=== PATIENT | female | born 1950 | race Caucasian/White ===

== ENCOUNTER → 2023-02-01 09:06 | Outpatient (BNVA) | payer MEDICARE, OTHER, SELFPAY | PROVIDERS: Visit Provider Internal Medicine Rheumatology | DX: M06.9 Rheumatoid arthritis, unspecified (principal); M81.0 Age-related osteoporosis without current pathological fracture; M75.01 Adhesive capsulitis of right shoulder; Z79.631 Long term (current) use of antimetabolite agent | CPT/HCPCS: 36415; 82306; 82310; 82565; 84100; 84450; 84460; 85025; 85652; 86140; 99212 ==

== ENCOUNTER 2023-02-01 10:46 | Outpatient (REF) | payer MEDICARE, OTHER, SELFPAY ==
[2023-02-01 13:16] LABS: MANUAL DIFF FLAG NO
[2023-02-01 13:28] LABS: Basophils Absolute Auto 0.1 X10*3/uL (0.0-0.2); Basophils Percent Auto 0.9 % (0-2); Eosinophils Absolute Auto 0.2 X10*3/uL (0.0-0.4); Eosinophils Percent Auto 2.1 % (0-4); Hematocrit 42.7 % (37.0-47.0); Hemoglobin 13.5 g/dl (12.0-16.0); Imm Gran Abs Auto 0.02 X10*3/uL (0.00-0.03); Imm Gran Pct Auto 0.2 % (0.0-0.4); Lymphocytes Absolute Auto 1.7 X10*3/uL (1.2-4.9); Lymphocytes Percent Auto 20.4 % (20-40); Mean Corpuscular HGB Conc 31.6 g/dl (31.0-35.0); Mean Corpuscular Hemoglobin 29.5 pg (27.0-33.0); Mean Corpuscular Volume 93.4 fL (80.0-98.0); Mean Platelet Volume 10.1 fL (9.4-12.3); Monocytes Absolute Auto 0.7 X10*3/uL (0.1-1.2); Monocytes Percent Auto 8.3 % (2-11); Neutrophils Absolute Auto 5.8 x10*3/uL (2.0-8.3); Neutrophils Percent Auto 68.1 % (45-73); Platelet Count 313 X10*3/uL (160-400); Red Blood Count 4.57 X10*6/uL (4.20-5.50); Red Cell Distribution Width 13.4 % (11.0-16.0); White Blood Count 8.5 X10*3/uL (4.8-10.8)
[2023-02-01 13:40] LABS: Alanine Aminotransferase 31 U/L (0-31); Aspartate Amino Transferase 24 U/L (5-31); Estimated Glomerular Filt Rate > 60; Phosphorus 4.1 mg/dL (2.7-4.5)
[2023-02-01 14:15] LABS: Erythrocyte Sedimentation Rate 12 MM/HR (0-20)
[2023-02-09 12:29] LABS: Vitamin D 25-OH, D2 <4 ng/mL; Vitamin D 25-OH, D3 28 ng/mL; Vitamin D 25-OH, Total 28 ng/mL (30-100)
== END 2023-02-01 10:47 | disposition home or self-care (01) ==
LOC: HO.10HDL 10:46
PROVIDERS: Visit Provider Internal Medicine Rheumatology
DX: Z13.89 Encounter for screening for other disorder (principal)
CPT/HCPCS: 36415; 82306; 82310; 82565; 84100; 84450; 84460; 85025; 85652; 86140

== ENCOUNTER 2023-05-04 09:21 | Outpatient (AMB) | payer MEDICARE, OTHER, SELFPAY ==
--- NOTE | 2023-05-04 09:30 | MHC.OFFVIS ---
Intake Vital Signs 05/04/23 09:37 Height 5 ft 3 in Weight 80 lb 7.5 oz BMI 14.3 BP 180/90 H Blood Pressure Location Lt brachial Position Sitting Pulse 107 H Pulse Source Pulse Oximeter Temp 97.7 F Temp Source Skin Pulse Oximetry (%) 96 Oxygen Delivery Method Room Air Intake Visit Reasons: ra Intake Note: Patient here for RA follow up. Insight Leader Required: No Accompanied by: Self / Same As Patient Allergies No Known Allergies Allergy (Verified 05/04/23 09:36) HPI HPI Comments History of Present Illness Details The patient returns for evaluation of her rheumatoid arthritis. She is back on the methotrexate now at 15 mg weekly with folic acid 1 mg daily. She really does not have any significant joint pain at present. She seems to be tolerating methotrexate as had been the case for a number of years now. This COPD has been stable with current inhalers. She unfortunately is still smoking 1/2 pack per day. There have been no further cardiac symptoms. We did locate her bone densitometry from the [facility]. It did show osteoporosis. She had been offered an injectable but she would going to have to pay 800 dollars a week for it so she decided to not take it. 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 Card Details: Negative chest pain, edema and syncope Resp Details: Negative for SOB, cough and wheezing GI Details: Negative indigestion/heartburn, nausea, abdominal pain, bowel changes, diarrhea, constipation and bloody stool. Davin/Lymph Details: Negative for excessive bruising or bleeding. Physical Exam Vital Signs: Last Vital Signs Temp 97.7 F 05/04/23 09:37 Pulse 107 H 05/04/23 09:37 BP 180/90 H 05/04/23 09:37 Pulse Ox 96 05/04/23 09:37 Oxygen Delivery Method Room Air 05/04/23 09:37 BMI result Body Mass Index 14.3 APPEARANCE: Patient in no acute distress EYES no redness, pupils equal and reactive to light, eyelids normal. No temporal artery tenderness, redness or swelling. Cervical Spine: Some decrease in lateral flexion to 10 degrees and rotation at 40 degrees but without pain. No tenderness. Thoracic Spine:.? No scoliosis.? No tenderness on palpation. Lumbar Spine:.? Alignment normal.? Full range of motion without pain, no tenderness. Chest Wall:.? No tenderness, swelling, increased warmth or erythema. Hands: Right: No tenderness or swelling in the MCP joints. There is some thickening at the thumb IP and 2nd PIP joint with no tenderness. There is no thenar atrophy or sensory loss. Left: Mild swelling without tenderness at the 1st MCP joint.There is some thickening in the 2nd 3rd PIP without tenderness. No thenar atrophy or sensory loss. Wrists:.? Normal pain-free range of motion without tenderness, swelling, increased warmth or erythema. Elbows:. Normal pain-free range of motion without tenderness, swelling, increased warmth or erythema. Shoulders: Right: She has pain with abduction to 75 degrees and limitation of active motion at 90 degrees of abduction. Similarly there is pain with any attempted internal rotation and external rotation is intact only to about 20 degrees. There is mild anterior, subacromial and posterior tenderness with some abductor weakness without swelling or adenopathy. Left:?? Full range of motion without pain. No tenderness, weakness, swelling, increased warmth or erythema. Hips:.? Full range of motion without pain. Hip bursa:.? No tenderness. Knees:.?? Normal pain-free range of motion with slight patellofemoral crepitus but no effusion, tenderness, swelling, increased warmth or erythema.? Ankles:.? Normal pain-free range of motion without tenderness, swelling, increased warmth or erythema. Feet:.? Normal pain-free range of motion without tenderness, swelling, increased warmth or erythema. Tender points:.? No tenderness to digital palpation at the occiput, trapezius, second rib, lateral epicondyle, knees, greater trochanter and gluteal area bilaterally. Results Reviewed Results Reviewed: February 01 labs: White count 8.5, ESR 12, hemoglobin 13.5. AST 24, ALT 31, CRP 0.4, creatinine 0.72 Assessment & Plan Assessment & Plan (1) detention methotrexate user: Code(s): Z79.631 - detention (current) use of antimetabolite agent (2) Osteoporosis: Comment: Right humeral fracture, 06/2021. November 09 T-scores at [facility]: LS spine-3.4, femoral neck,-2.2, total femur -2.0 Apparently declined treatment for osteoporosis at the [facility]. Code(s): M81.0 - Age-related osteoporosis without current pathological fracture (3) Rheumatoid arthritis: Comment: Onset ~ 2009, mostly hands. RF, CCP Ab, CACHORRO all positive. Negative anti DNA, anti Sm Ab. methotrexate started Aug 2012 - stopped 08/04 when she developed seizure, blood in CSF, leptomeningeal inflammation on MRI scan Hydroxychloroquine started 2016 - changed to methotrexate (restarted) 06/06 Code(s): M06.9 - Rheumatoid arthritis, unspecified Plan Now that she is back on the methotrexate there is good control of her synovitis from the RA with that treatment. She is functioning a bit better as well. She remains with limited motion and pain in the right shoulder where she had the fracture. I suspect she has rotator cuff damage there as well as osteoarthritis. I encouraged her to continue with [id number] exercises that she had been taught in physical therapy. We reviewed the bone density test from the [facility]. I also have recommended treatment for osteoporosis since given her previous fracture, history of RA, and smoking she is at a greater risk of fracture. I think we could start with alendronate 70 mg once a week. I gave her some written information on osteoporosis as well as on alendronate to review. She seems to agree to try that medication. We discussed the potential atypical fractures, heartburn, and osteonecrosis of the jaw that can occur with bisphosphonate treatments. Most of these occur after many years. I explained that the treatment would aim to avoid future fractures but would not improve any of her symptoms currently. We will have her come back in 3 months with lab work for monitoring the methotrexate and vitamin D level to be done before that visit. 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
[2023-05-04 09:37] VITALS: BP 180/90; PULSE 107; TEMP 36.5; O2SAT 96; BMI 14.3
== END 2023-05-04 10:14 | disposition home or self-care (01) ==
PROVIDERS: Visit Provider Internal Medicine Rheumatology
DX: Z79.631 Long term (current) use of antimetabolite agent (principal); M81.0 Age-related osteoporosis without current pathological fracture; M06.9 Rheumatoid arthritis, unspecified
CPT/HCPCS: 99214

== ENCOUNTER → 2023-05-04 09:21 | Outpatient (BNVA) | payer MEDICARE, OTHER, SELFPAY | PROVIDERS: Visit Provider Internal Medicine Rheumatology | DX: M06.9 Rheumatoid arthritis, unspecified (principal); M81.0 Age-related osteoporosis without current pathological fracture; Z79.631 Long term (current) use of antimetabolite agent | CPT/HCPCS: 99212 ==

== ENCOUNTER 2023-05-12 08:51 | Outpatient (REF) | payer MEDICARE, OTHER, SELFPAY ==
[2023-05-12 11:32] LABS: Basophils Absolute Auto 0.1 X10*3/uL (0.0-0.2); Basophils Percent Auto 1.1 % (0-2); Eosinophils Absolute Auto 0.2 X10*3/uL (0.0-0.4); Hematocrit 43.9 % (37.0-47.0); Hemoglobin 14.2 g/dl (12.0-16.0); Imm Gran Abs Auto 0.02 X10*3/uL (0.00-0.03); Imm Gran Pct Auto 0.3 % (0.0-0.4); Lymphocytes Absolute Auto 2.4 X10*3/uL (1.2-4.9); Lymphocytes Percent Auto 29.4 % (20-40); MANUAL DIFF FLAG SCAN; Mean Corpuscular HGB Conc 32.3 g/dl (31.0-35.0); Mean Corpuscular Hemoglobin 31.5 pg (27.0-33.0); Mean Corpuscular Volume 97.3 fL (80.0-98.0); Mean Platelet Volume 10.3 fL (9.4-12.3); Monocytes Absolute Auto 0.6 X10*3/uL (0.1-1.2); Monocytes Percent Auto 7.9 % (2-11); Neutrophils Absolute Auto 4.7 x10*3/uL (2.0-8.3); Neutrophils Percent Auto 59.3 % (45-73); Platelet Count 311 X10*3/uL (160-400); Red Blood Count 4.51 X10*6/uL (4.20-5.50); Red Cell Distribution Width 14.8 % (11.0-16.0); SCAN SMEAR FLAG 1
[2023-05-12 11:36] LABS: Alanine Aminotransferase 25 U/L (0-31); C Reactive Protein 0.42 mg/dL (< or = 0.50); Estimated Glomerular Filt Rate > 60
[2023-05-12 12:07] LABS: SLIDE REVIEW VERIFIED
[2023-05-12 12:20] LABS: Erythrocyte Sedimentation Rate 13 MM/HR (0-20)
[2023-05-17 13:54] LABS: Vitamin D 25-OH, D2 <4 ng/mL; Vitamin D 25-OH, D3 46 ng/mL; Vitamin D 25-OH, Total 46 ng/mL (30-100)
== END 2023-05-12 08:52 | disposition home or self-care (01) ==
LOC: HO.10HDL 08:51
PROVIDERS: Visit Provider Internal Medicine Rheumatology
DX: M06.9 Rheumatoid arthritis, unspecified (principal); E55.9 Vitamin D deficiency, unspecified; Z79.899 Other long term (current) drug therapy
CPT/HCPCS: 36415; 82306; 82565; 84460; 85025; 85652; 86140

== ENCOUNTER 2023-09-12 10:33 | Outpatient (REF) | payer MEDICARE, OTHER, SELFPAY ==
[2023-09-12 11:40] LABS: MANUAL DIFF FLAG NO
[2023-09-12 11:54] LABS: Basophils Absolute Auto 0.1 X10*3/uL (0.0-0.2); Basophils Percent Auto 0.8 % (0-2); Eosinophils Absolute Auto 0.2 X10*3/uL (0.0-0.4); Eosinophils Percent Auto 1.7 % (0-4); Hematocrit 43.3 % (37.0-47.0); Imm Gran Abs Auto 0.03 X10*3/uL (0.00-0.03); Imm Gran Pct Auto 0.3 % (0.0-0.4); Lymphocytes Absolute Auto 2.1 X10*3/uL (1.2-4.9); Lymphocytes Percent Auto 22.4 % (20-40); Mean Corpuscular HGB Conc 32.3 g/dl (31.0-35.0); Mean Corpuscular Hemoglobin 31.6 pg (27.0-33.0); Mean Corpuscular Volume 97.7 fL (80.0-98.0); Mean Platelet Volume 10.1 fL (9.4-12.3); Monocytes Absolute Auto 0.7 X10*3/uL (0.1-1.2); Monocytes Percent Auto 7.3 % (2-11); Neutrophils Absolute Auto 6.4 x10*3/uL (2.0-8.3); Neutrophils Percent Auto 67.5 % (45-73); Platelet Count 323 X10*3/uL (160-400); Red Blood Count 4.43 X10*6/uL (4.20-5.50); Red Cell Distribution Width 13.8 % (11.0-16.0); White Blood Count 9.5 X10*3/uL (4.8-10.8)
[2023-09-12 12:36] LABS: Erythrocyte Sedimentation Rate 10 MM/HR (0-20)
[2023-09-12 13:01] LABS: Alanine Aminotransferase 22 U/L (0-31); Aspartate Amino Transferase 20 U/L (5-31); C Reactive Protein 0.34 mg/dL (< or = 0.50); Estimated Glomerular Filt Rate > 60
== END 2023-09-12 10:34 | disposition home or self-care (01) ==
LOC: HO.10HDL 10:33
PROVIDERS: Visit Provider Internal Medicine Rheumatology
DX: M06.9 Rheumatoid arthritis, unspecified (principal); Z79.899 Other long term (current) drug therapy
CPT/HCPCS: 36415; 82565; 84450; 84460; 85025; 85652; 86140

== ENCOUNTER 2023-09-15 13:05 | Outpatient (AMB) | payer MEDICARE, OTHER, SELFPAY ==
--- NOTE | 2023-09-15 13:12 | A.OFFVIS_ITS ---
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 García, presents today for follow up and test results. Crepe Machine Operator Required: No Accompanied by: Self / Same As Patient Allergies No Known Allergies Allergy (Verified 09/15/23 13:18) HPI HPI Comments History of Present Illness Details Ms. Verna Hess yoF returns for follow-up of her rheumatoid arthritis. Marybel waldron is back on the methotrexate now at 15 mg weekly with folic acid 1 mg daily since last visit 04/2023. She really does not have any significant joint pain at present. She is tolerating methotrexate as had been the case for a number of years now. This COPD has been stable with current inhalers. She unfortunately is still smoking 1/2 pack per day. There have been no further cardiac symptoms. Bone densitometry from the [facility] shows lowes T-Socre -3.8, osteoporosis. She had been offered an injectable but she would going to have to pay 800 dollars a week for it so she decided to not take it. She takes a multivitamin daily. 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 NECK:? No thyromegaly or masses, no adenopathy, trachea midline. HEART:? Regular rhythm, S1-S2 heard, no murmurs, rubs or gallops. LUNG:? Clear to percussion and auscultation Cervical Spine: Some decrease in lateral flexion to 10 degrees and rotation at 40 degrees but without pain. No tenderness. Thoracic Spine:.? No scoliosis.? No tenderness on palpation. Lumbar Spine:.? Alignment normal.? Full range of motion without pain, no tenderness. Chest Wall:.? No tenderness, swelling, increased warmth or erythema. Hands: Right: No tenderness or swelling in the MCP joints. There is some thickening at the thumb IP and 2nd PIP joint with no tenderness. There is no thenar atrophy or sensory loss. Left: No more Mild swelling without tenderness at the 1st MCP joint. There is some thickening in the 2nd 3rd PIP without tenderness. No thenar atrophy or sensory loss. Wrists:.? Normal pain-free range of motion without tenderness, swelling, increased warmth or erythema. Elbows:. Normal pain-free range of motion without tenderness, swelling, increased warmth or erythema. Shoulders: Right: She has pain with abduction to 75 degrees and limitation of active motion at 90 degrees of abduction. Similarly there is pain with any attempted internal rotation and external rotation is intact only to about 20 degrees. There is mild anterior, subacromial and posterior tenderness with some abductor weakness without swelling or adenopathy. Left:?? Full range of motion without pain. No tenderness, weakness, swelling, increased warmth or erythema. Hips:.? Full range of motion without pain. Hip bursa:.? No tenderness. Knees:.?? Normal pain-free range of motion with slight patellofemoral crepitus but no effusion, tenderness, swelling, increased warmth or erythema.? Ankles:.? Normal pain-free range of motion without tenderness, swelling, increa sed warmth or erythema. Feet:.? Normal pain-free range of motion without tenderness, swelling, increased warmth or erythema. Tender points:.? No tenderness to digital palpation at the occiput, trapezius, second rib, lateral epicondyle, knees, greater trochanter and gluteal area bilaterally. 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 November 09 T-scores at AT[facility]: LS spine-3.4, femoral neck,-2.2, total femur -2.0 Apparently declined treatment for osteoporosis at the [facility]. Code(s): M81.0 - Age-related osteoporosis without current pathological fracture Qualifiers: Osteoporosis type: age-related Presence of current pathological fracture: with current pathological fracture Encounter type: subsequent encounter Fracture healing: with routine healing Qualified Code(s): M80.00XD - Age-related osteoporosis with current pathological fracture, unspecified site, subsequent encounter for fracture with routine healing (3) Rheumatoid arthritis: Comment: Onset ~ 2009, mostly hands. RF, CCP Ab, CACHORRO all positive. Negative anti DNA, anti Sm Ab. methotrexate started Aug 2012 - stopped 08/04 when she developed seizure, blood in CSF, leptomeningeal inflammation on MRI scan Hydroxychloroquine started 2016 - changed to methotrexate (restarted) 06/06 Code(s): M06.9 - Rheumatoid arthritis, unspecified Qualifiers: Rheumatoid arthritis location: multiple sites Rheumatoid factor presenc e: with rheumatoid factor Qualified Code(s): M05.79 - Rheumatoid arthritis with rheumatoid factor of multiple sites without organ or systems involvement (4) Low vitamin D level: Code(s): R79.89 - Other specified abnormal findings of blood chemistry Plan #SeroPos RA: Ms. Gillespie continues to do well on methotrexate. There is good control of her synovitis from the RA with that treatment. She remains with limited motion and pain in the right shoulder where she had the fracture. I suspect she has rotator cuff damage there as well as osteoarthritis. I reiterated that she should continue with [id number] exercises that she had been taught in physical therapy. Labs are wnl to continue with MTX #Osteoporosis/Low Vitamin D: We reviewed the bone density test from the [facility]. It was discussed at last visit but treatment for osteoporosis with Alendronate was not started. Given her previous fracture, history of RA, and smoking she is at a greater risk of fracture and with a T- Score of -3.8, I think Prolia is more appropriate to start given her GERD. We discussed the potential atypical fractures, heartburn, and osteonecrosis of the jaw that can occur with this treatment. Most of these occur after many years. I explained that the treatment would aim to avoid future fractures but would not improve any of her symptoms currently. #Mcfp Use: We will have her come back in 6 months with lab work for monitoring the methotrexate and vitamin D level to be done before that visit. She will also obtain labs before starting the Prolia injections. She denies side effect of MTX. Orders: Orders Comprehensive Met. 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 operator (current) use of antimetabolite agent Alanine Aminotransferase 4 Months M06.9 - Rheumatoid arthritis, unspecified, Z79.631 - alf (current) use of antimetabolite agent, Z79.899 - Other jail (current) drug therapy Creatinine 4 Months M06.9 - Rheumatoid arthritis, unspecified, Z79.631 - alf (current) use of antimetabolite agent, Z79.899 - Other rat exterminator (current) drug therapy Complete Blood Count Auto Diff 4 Months M06.9 - Rheumatoid arthritis, unspecified, Z79.631 - ad terminal makeup operator (current) use of antimetabolite agent, Z79.899 - Other rat exterminator (current) drug therapy Alkaline Phosphatase Bone Today M81.0 - Age-related osteoporosis without current pathological fracture, R79.89 - Other specified abnormal findings of blood chemistry C Reactive Protein 4 Months M06.9 - Rheumatoid arthritis, unspecified, Z79.631 - ad terminal makeup operator (current) use of antimetabolite agent Aspartate Amino Transferase 4 Months M06.9 - Rheumatoid arthritis, unspecified, Z79.631 - alf (current) use of antimetabolite agent, Z79.899 - Other rat exterminator (current) drug therapy Coding Level of Care Code Est Pt Level 3 (09685) Diagnoses alf methotrexate user Z79.631 Age-related osteoporosis with current pathological fracture with routine healing, subsequent encounter M80.00XD Osteoporosis type: age-related Presence of current pathological fracture: with current pathological f racture Encounter type: subsequent encounter Fracture healing: with routine healing Rheumatoid arthritis involving multiple sites with positive rheumatoid factor M 05.79 Rheumatoid arthritis location: multiple sites Rheumatoid factor presence: with rheumatoid factor Low vitamin D level R79.89
[2023-09-15 13:20] VITALS: BP 130/76; PULSE 104; TEMP 36.1; O2SAT 98; BMI 24.7
== END 2023-09-15 13:42 | disposition home or self-care (01) ==
PROVIDERS: Visit Provider Nurse Practitioner Family
DX: Z79.631 Long term (current) use of antimetabolite agent (principal); M80.00XD Age-related osteoporosis with current pathological fracture, unspecified site, subsequent encounter for fracture with routine healing; M05.79 Rheumatoid arthritis with rheumatoid factor of multiple sites without organ or systems involvement; R79.89 Other specified abnormal findings of blood chemistry
CPT/HCPCS: 99213

== ENCOUNTER → 2023-09-15 13:05 | Outpatient (BNVA) | payer MEDICARE, OTHER, SELFPAY | PROVIDERS: Visit Provider Nurse Practitioner Family | DX: M05.79 Rheumatoid arthritis with rheumatoid factor of multiple sites without organ or systems involvement (principal); M80.00XD Age-related osteoporosis with current pathological fracture, unspecified site, subsequent encounter for fracture with routine healing; E55.9 Vitamin D deficiency, unspecified; Z79.631 Long term (current) use of antimetabolite agent | CPT/HCPCS: 99212 ==

== ENCOUNTER 2023-10-02 11:54 | Outpatient (REF) | payer MEDICARE, OTHER, SELFPAY ==
[2023-10-02 13:35] LABS: Alanine Aminotransferase 23 U/L (0-31); Albumin Level 4.2 g/dL (3.5-5.0); Alkaline Phosphatase 153 U/L (39-117); Anion Gap 12 (12-20); Aspartate Amino Transferase 18 U/L (5-31); Bilirubin Total 0.9 mg/dL (0.0-1.0); Blood Urea Nitrogen 15 mg/dL (9-16); Calcium 9.7 mg/dL (8.4-10.2); Carbon Dioxide 29 mmol/L (22-29); Chloride 104 mmol/L (96-108); Estimated Glomerular Filt Rate > 60; Glucose Random 92 mg/dL (60-115); Potassium 4.2 mmol/L (3.3-5.1); Sodium 141 mmol/L (135-145); Total Protein 6.9 g/dL (6.5-8.0)
[2023-10-05 17:28] LABS: Alkaline Phosphatase Bone 25.9 mcg/L (5.6-29.0)
[2023-10-06 11:23] LABS: VITAMIN D (1,25 OH) D3 61 pg/mL; Vit D (1,25-Dihydroxy) Total 61 pg/mL (18-72); Vitamin D (1,25 OH) D2 <8 pg/mL
== END 2023-10-02 11:55 | disposition home or self-care (01) ==
LOC: HO.10HDL 11:54
PROVIDERS: Visit Provider Nurse Practitioner Family
DX: R79.89 Other specified abnormal findings of blood chemistry (principal); M81.0 Age-related osteoporosis without current pathological fracture
CPT/HCPCS: 36415; 80053; 82652; 84075

== ENCOUNTER → 2023-10-17 10:00 | Outpatient (BNVA) | payer MEDICARE, OTHER, SELFPAY | PROVIDERS: PCP Internal Medicine; Visit Provider Nurse Practitioner Family ==

== ENCOUNTER 2024-03-13 09:19 | Outpatient (REF) | payer MEDICARE, OTHER, SELFPAY ==
[2024-03-13 11:57] LABS: MANUAL DIFF FLAG NO
[2024-03-13 12:02] LABS: Basophils Absolute Auto 0.1 X10*3/uL (0.0-0.2); Basophils Percent Auto 0.9 % (0-2); Eosinophils Absolute Auto 0.2 X10*3/uL (0.0-0.4); Eosinophils Percent Auto 1.8 % (0-4); Hematocrit 42.3 % (37.0-47.0); Hemoglobin 13.9 g/dl (12.0-16.0); Imm Gran Abs Auto 0.04 X10*3/uL (0.00-0.03); Imm Gran Pct Auto 0.4 % (0.0-0.4); Lymphocytes Percent Auto 21.2 % (20-40); Mean Corpuscular HGB Conc 32.9 g/dl (31.0-35.0); Mean Corpuscular Hemoglobin 32.1 pg (27.0-33.0); Mean Corpuscular Volume 97.7 fL (80.0-98.0); Mean Platelet Volume 10.3 fL (9.4-12.3); Monocytes Absolute Auto 0.6 X10*3/uL (0.1-1.2); Monocytes Percent Auto 6.4 % (2-11); Neutrophils Absolute Auto 6.4 x10*3/uL (2.0-8.3); Neutrophils Percent Auto 69.3 % (45-73); Platelet Count 316 X10*3/uL (160-400); Red Blood Count 4.33 X10*6/uL (4.20-5.50); Red Cell Distribution Width 14.6 % (11.0-16.0); White Blood Count 9.3 X10*3/uL (4.8-10.8)
[2024-03-13 12:20] LABS: Alanine Aminotransferase 20 U/L (0-31); Albumin Level 4.4 g/dL (3.5-5.0); Alkaline Phosphatase 113 U/L (39-117); Anion Gap 14 (12-20); Aspartate Amino Transferase 20 U/L (5-31); Bilirubin Total 0.8 mg/dL (0.0-1.0); Blood Urea Nitrogen 12 mg/dL (9-16); C Reactive Protein 0.48 mg/dL (< or = 0.50); Calcium 10.3 mg/dL (8.4-10.2); Carbon Dioxide 27 mmol/L (22-29); Chloride 103 mmol/L (96-108); Estimated Glomerular Filt Rate > 60; Glucose Random 129 mg/dL (60-115); Potassium 4.4 mmol/L (3.3-5.1); Sodium 140 mmol/L (135-145); Total Protein 7.4 g/dL (6.5-8.0)
[2024-03-13 12:43] LABS: Erythrocyte Sedimentation Rate 12 MM/HR (0-20)
[2024-03-17 16:28] LABS: Vitamin D 25-OH, D2 <4 ng/mL; Vitamin D 25-OH, D3 41 ng/mL; Vitamin D 25-OH, Total 41 ng/mL (30-100)
== END 2024-03-13 09:20 | disposition home or self-care (01) ==
LOC: HO.WFDLDS 09:19
PROVIDERS: Nurse Practitioner Family; Visit Provider Student in an Organized Health Care Education/Training Program
DX: M06.9 Rheumatoid arthritis, unspecified (principal); R79.89 Other specified abnormal findings of blood chemistry; M05.79 Rheumatoid arthritis with rheumatoid factor of multiple sites without organ or systems involvement; Z79.631 Long term (current) use of antimetabolite agent; Z79.899 Other long term (current) drug therapy
CPT/HCPCS: 36415; 80053; 82306; 85025; 85652; 86140

== ENCOUNTER 2024-03-22 09:37 | Outpatient (AMB) | payer MEDICARE, OTHER, SELFPAY ==
--- NOTE | 2024-03-22 09:47 | A.OFFVIS_ITS ---
Vital Signs 03/22/24 09:48 Height 5 ft 3 in Weight 136 lb 0.403 oz BMI 24.1 BP 130/80 Blood Pressure Location Lt brachial Position Sitting Pulse 98 Pulse Source Pulse Oximeter Pulse Oximetry (%) 99 Oxygen Delivery Method Room Air Intake Visit Reasons: RA/CM Intake Note: Patient presents for RA. Allergies No Known Allergies Allergy (Verified 03/22/24 09:48) Medication List - Last Reconciled 03/22/24 by Jessenia Mistry MD albuterol sulfate 90 mcg/actuation (Ventolin HFA) 2 puffs inhalation Q6H atorvastatin 80 mg PO DAILY denosumab (Prolia) 60 mg subcut [id number] gvlnmqfilbi-kxumkjgrh-shdxtbeu 200-62.5-25 mcg (Trelegy Ellipta) 1 ea inhalation DAILY folic acid 0.8 mg PO DAILY lisinopril 5 mg PO DAILY methimazole mg PO methotrexate sodium 15 mg (6 x 2.5 mg) PO QWEEK akldmwym-xkzk-CC-calcium-mins 9 mg iron-400 mcg (Thera M Plus (ferrous fumarate)) 1 tab PO DAILY pantoprazole 40 mg PO DAILY thiamine HCl (vitamin B1) (Vitamin B-1) 100 mg PO DAILY HPI Comments Details: This is a 73-year-old female with seropositive RA who presents for follow-up. She remains on methotrexate 6 tabs weekly and folic acid 0.8 mg daily. She states that she feels quite well overall with no joint pain swelling or stiffness. Continues to smoke half a pack a day. 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 [employer] Review of Systems Musc Denies arthralgias, Denies joint swelling and Denies stiffness Physical Exam Vital Signs: Last Vital Signs Pulse 98 03/22/24 09:48 BP 130/80 03/22/24 09:48 Pulse Ox 99 03/22/24 09:48 Oxygen Delivery Method Room Air 03/22/24 09:48 BMI result Body Mass Index 24.1 Const General: cooperative, healthy appearing and comfortable Nutritional Appearance: average body habitus Limitations: no limitations HEENT Head: Yes normocephalic and Yes atraumatic Mouth: moist mucous membranes Resp Effort & Inspection: normal respiratory effort and able to speak in complete sentences Auscultation: clear to auscultation bilaterally Cardio Rate: tachycardic Rhythm: regular rhythm Skin General skin exam: no rashes or lesions noted Extrem Other: Minimal osteoarthritic changes of both hands with no active synovitis Assessment & Plan Assessment & Plan (1) Rheumatoid arthritis: Comment: Onset ~ 2009, mostly hands. RF, CCP Ab, CACHORRO all positive. Negative anti DNA, anti Sm Ab. methotrexate started Aug 2012 - stopped 08/04 when she developed seizure, blood in CSF, leptomeningeal inflammation on MRI scan Hydroxychloroquine started 2016 - changed to methotrexate (restarted) 06/06 Code(s): M06.9 - Rheumatoid arthritis, unspecified Category: Medical Qualifiers: Rheumatoid arthritis location: multiple sites Rheumatoid factor presence: with rheumatoid factor Qualified Code(s): M05.79 - Rheumatoid arthritis with rheumatoid factor of multiple sites without organ or systems involvement Plan: This is a 73-year-old female with seropositive RA who presents for follow-up. This is her 1st visit with me. She used to follow-up with Ema Dixon and Dr. García before her. 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 Code(s): M81.0 - Age-related osteoporosis without current pathological fracture Category: Medical Qualifiers: Osteoporosis type: age-related Presence of current pathological fracture: with current pathological fracture Encounter type: subsequent encounter Fracture healing: with routine healing Qualified Code(s): M80.00XD - Age-related osteoporosis with current pathological fracture, unspecified site, subsequent encounter for fracture with routine healing Plan: Discussed osteoporosis its potential complications and its treatment. Most recent bone density scan was more than 2 years ago. Needs to be updated. Check DEXA scan before next visit as well as secondary causes of osteoporosis and we will discuss treatment next visit (4) Tobacco abuse counseling: Code(s): Z71.6 - Tobacco abuse counseling Category: Medical Plan: Patient continues to smoke. Discussed potential long-term complications such as cardiovascular events, worsening COPD, increased risk of malignancy and for control of RA. Plan I spent 47 minutes reviewing patient's chart, evaluating patient, ordering diagnostic workup, counseling patient and documenting in the chart Orders: Orders Complete Blood Count Auto Diff 4 Months M05.79 - Rheumatoid arthritis with rheumatoid factor of multiple sites without organ or systems involvement Comprehensive Met. Panel 4 Months M05.79 - Rheumatoid arthritis with rheumatoid factor of multiple sites without organ or systems involvement C Reactive Protein 4 Months M05.79 - Rheumatoid arthritis with rheumatoid factor of multiple sites without organ or systems involvement Erythrocyte Sedimentation Rate 4 Months M05.79 - Rheumatoid arthritis with rheumatoid factor of multiple sites without organ or systems involvement Parathyroid Hormone Intact 4 Months M80.00XD - Age-related osteoporosis with current pathological fracture, unspecified site, subsequent encounter for fracture with routine healing Collagen Type I C-Telopeptide 4 Months M80.00XD - Age-related osteoporosis with current pathological fracture, unspecified site, subsequent encounter for fracture with routine healing Phosphorus 4 Months M80.00XD - Age-related osteoporosis with current pathological fracture, unspecified site, subsequent encounter for fracture with routine healing Protein Electrophoresis, Serum 4 Months M80.00XD - Age-related osteoporosis with current pathological fracture, unspecified site, subsequent encounter for fracture with routine healing TSH reflex Free T4 4 Months M80.00XD - Age-related osteoporosis with current pathological fracture, unspecified site, subsequent encounter for fracture with routine healing XR DEXA appendicular skeleton 06/24/24 M80.00XD - Age-related osteoporosis with current pathological fracture, unspecified site, subsequent encounter for fracture with routine healing Coding Level of Care Code Est Pt Level 5 (52710) Complex EM visit Add On [id number] Diagnoses Rheumatoid arthritis involving multiple sites with positive rheumatoid factor M05.79 Rheumatoid arthritis location: multiple sites Rheumatoid factor presence: with rheumatoid factor 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
[2024-03-22 09:48] VITALS: BP 130/80; PULSE 98; O2SAT 99; BMI 24.1
== END 2024-03-22 10:09 | disposition home or self-care (01) ==
PROVIDERS: PCP Internal Medicine; Visit Provider Student in an Organized Health Care Education/Training Program
DX: M05.79 Rheumatoid arthritis with rheumatoid factor of multiple sites without organ or systems involvement (principal); Z79.631 Long term (current) use of antimetabolite agent; M80.00XD Age-related osteoporosis with current pathological fracture, unspecified site, subsequent encounter for fracture with routine healing; Z71.6 Tobacco abuse counseling
CPT/HCPCS: 99215; G2211

== ENCOUNTER → 2024-03-22 09:37 | Outpatient (BNVA) | payer MEDICARE, OTHER, SELFPAY | PROVIDERS: PCP Internal Medicine; Visit Provider Student in an Organized Health Care Education/Training Program | DX: M05.79 Rheumatoid arthritis with rheumatoid factor of multiple sites without organ or systems involvement (principal); M80.00XD Age-related osteoporosis with current pathological fracture, unspecified site, subsequent encounter for fracture with routine healing; Z71.6 Tobacco abuse counseling; Z79.631 Long term (current) use of antimetabolite agent | CPT/HCPCS: 99212 ==

== ENCOUNTER 2024-07-16 11:46 | Outpatient (REF) | payer MEDICARE, OTHER, SELFPAY ==
[2024-07-16 14:39] LABS: MANUAL DIFF FLAG NO
[2024-07-16 14:53] LABS: Basophils Absolute Auto 0.1 X10*3/uL (0.0-0.2); Basophils Percent Auto 0.8 % (0-2); Eosinophils Absolute Auto 0.2 X10*3/uL (0.0-0.4); Hematocrit 42.1 % (37.0-47.0); Hemoglobin 13.8 g/dl (12.0-16.0); Imm Gran Abs Auto 0.02 X10*3/uL (0.00-0.03); Imm Gran Pct Auto 0.2 % (0.0-0.4); Lymphocytes Absolute Auto 2.5 X10*3/uL (1.2-4.9); Lymphocytes Percent Auto 29.1 % (20-40); Mean Corpuscular HGB Conc 32.8 g/dl (31.0-35.0); Mean Corpuscular Hemoglobin 31.8 pg (27.0-33.0); Mean Platelet Volume 10.1 fL (9.4-12.3); Monocytes Absolute Auto 0.6 X10*3/uL (0.1-1.2); Monocytes Percent Auto 7.4 % (2-11); Neutrophils Absolute Auto 5.1 x10*3/uL (2.0-8.3); Neutrophils Percent Auto 60.5 % (45-73); Platelet Count 317 X10*3/uL (160-400); Red Blood Count 4.34 X10*6/uL (4.20-5.50); Red Cell Distribution Width 13.9 % (11.0-16.0); White Blood Count 8.5 X10*3/uL (4.8-10.8)
[2024-07-16 15:31] LABS: Alanine Aminotransferase 29 U/L (0-31); Albumin Level 4.1 g/dL (3.5-5.0); Anion Gap 11 (12-20); Aspartate Amino Transferase 29 U/L (5-31); Bilirubin Total 0.8 mg/dL (0.0-1.0); Blood Urea Nitrogen 13 mg/dL (9-16); C Reactive Protein 0.42 mg/dL (< or = 0.50); Calcium 9.5 mg/dL (8.4-10.2); Carbon Dioxide 29 mmol/L (22-29); Chloride 102 mmol/L (96-108); Estimated Glomerular Filt Rate > 60; Glucose Random 122 mg/dL (60-115); Sodium 138 mmol/L (135-145); TSH reflex Free T4 2.86 uIU/mL (0.32-4.0); Total Protein 6.8 g/dL (6.5-8.0)
[2024-07-16 15:52] LABS: Parathyroid Hormone Intact 72.9 pg/mL (8.7-77.1)
[2024-07-16 16:04] LABS: Alkaline Phosphatase 114 U/L (39-117)
[2024-07-16 18:24] LABS: Erythrocyte Sedimentation Rate 12 MM/HR (0-20)
[2024-07-19 10:49] LABS: Prot Elec - Albumin 4.1 g/dL (3.8-4.8); Prot Elec - Alpha1 0.4 g/dL (0.2-0.3); Prot Elec - Alpha2 0.8 g/dL (0.5-0.9); Prot Elec - Beta 1 0.5 g/dL (0.4-0.6); Prot Elec - Beta 2 0.4 g/dL (0.2-0.5); Prot Elec - Gamma 0.7 g/dL (0.8-1.7); Prot Elec - Total Protein 6.9 g/dL (6.1-8.1)
[2024-07-22 20:38] LABS: Collagen Type I C-Telopeptide 185 pg/mL (see note)
== END 2024-07-16 11:47 | disposition home or self-care (01) ==
LOC: HO.WFDLDS 11:46
PROVIDERS: Visit Provider Student in an Organized Health Care Education/Training Program
DX: M05.79 Rheumatoid arthritis with rheumatoid factor of multiple sites without organ or systems involvement (principal); M80.00XD Age-related osteoporosis with current pathological fracture, unspecified site, subsequent encounter for fracture with routine healing
CPT/HCPCS: 36415; 80053; 82523; 83970; 84100; 84165; 84443; 85025; 85652; 86140

== ENCOUNTER 2024-07-22 09:20 | Outpatient (AMB) | payer MEDICARE, OTHER, SELFPAY ==
--- NOTE | 2024-07-22 09:24 | MHC.OFFVIS ---
Vital Signs 07/22/24 09:30 Height 5 ft 3 in Weight 134 lb 0.657 oz BMI 23.7 BP 120/70 Blood Pressure Location Lt brachial Position Sitting Pulse 75 Pulse Source Pulse Oximeter Pulse Oximetry (%) 95 Oxygen Delivery Method Room Air Intake Visit Reasons: RA/CM APT Intake Note: Patient presents for RA. Allergies No Known Allergies Allergy (Verified 07/22/24 09:29) Medication List - Last Reconciled 07/22/24 by Jessenia Mistry MD albuterol sulfate 90 mcg/actuation (Ventolin HFA) 2 puffs inhalation Q6H atorvastatin 80 mg PO DAILY denosumab (Prolia) 60 mg subcut [id number] aybqplzrxno-baaqppizn-rpvbfijo 200-62.5-25 mcg (Trelegy Ellipta) 1 ea inhalation DAILY folic acid 0.8 mg PO DAILY lisinopril 5 mg PO DAILY methimazole mg PO methotrexate sodium 15 mg (6 x 2.5 mg) PO QWEEK inaqxwci-ewxj-PV-calcium-mins 9 mg iron-400 mcg (Thera M Plus (ferrous fumarate)) 1 tab PO DAILY pantoprazole 40 mg PO DAILY thiamine HCl (vitamin B1) (Vitamin B-1) 100 mg PO DAILY HPI Comments Details: This is a 73-year-old female with seropositive RA who presents for follow-up. She remains on methotrexate 6 tabs weekly and folic acid 0.8 mg daily. She states that she feels quite well overall with no joint pain swelling or stiffness. She had 1 flare-ups since last visit. Affecting her left hand. It was a few days ago. Lasted a few hours. Treated with Tylenol. Continues to smoke half a pack a day. 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 [employer] Denies arthralgias, Denies joint swelling and Denies stiffness Physical Exam Vital Signs: Last Vital Signs Pulse 75 07/22/24 09:30 BP 120/70 07/22/24 09:30 Pulse Ox 95 07/22/24 09:30 Oxygen Delivery Method Room Air 07/22/24 09:30 BMI result Body Mass Index 23.7 Const General: cooperative, healthy appearing and comfortable Nutritional Appearance: average body habitus Limitations: no limitations HEENT Head: Yes normocephalic and Yes atraumatic Mouth: moist mucous membranes Resp Effort & Inspection: normal respiratory effort and able to speak in complete sentences Auscultation: diminished lung sounds Cardio Rhythm: regular rhythm Skin General skin exam: no rashes or lesions noted Extrem Other: Minimal osteoarthritic changes of both hands with no active synovitis Assessment & Plan Assessment & Plan (1) Rheumatoid arthritis: Comment: Onset ~ 2009, mostly hands. RF, CCP Ab, CACHORRO all positive. Negative anti DNA, anti Sm Ab. methotrexate started Aug 2012 - stopped 08/04 when she developed seizure, blood in CSF, leptomeningeal inflammation on MRI scan Hydroxychloroquine started 2016 - changed to methotrexate (restarted) 06/06 Code(s): M06.9 - Rheumatoid arthritis, unspecified Category: Medical Qualifiers: Rheumatoid arthritis location: multiple sites Rheumatoid factor presence: with rheumatoid factor Qualified Code(s): M05.79 - Rheumatoid arthritis with rheumatoid factor of multiple sites without organ or systems involvement Plan: This is a 73-year-old female with seropositive RA who presents for follow-up. She is doing quite well overall with no active synovitis on methotrexate 15 mg weekly plus folic acid 0.8 mg daily Continue current meds Labs before next visit in 4 months (2) group home methotrexate user: Code(s): Z79.631 - group home (current) use of antimetabolite agent Category: Medical Plan: Monitor safety labs (3) Osteoporosis: Comment: Right humeral fracture, 06/2023November 09 T-scores at [facility]: LS spine-3.4, femoral neck,-2.2, total femur -2.0 Apparently declined treatment for osteoporosis at the [facility]. Code(s): M81.0 - Age-related osteoporosis without current pathological fracture Category: Medical Qualifiers: Osteoporosis type: age-related Presence of current pathological fracture: with current pathological fracture Encounter type: subsequent encounter Fracture healing: with routine healing Qualified Code(s): M80.00XD - Age-related osteoporosis with current pathological fracture, unspecified site, subsequent encounter for fracture with routine healing Plan: Discussed osteoporosis its potential complications and its treatment. Most recent bone density scan was more than 2 years ago. Needs to be updated. DEXA scan is scheduled this month. (4) Tobacco abuse counseling: Code(s): Z71.6 - Tobacco abuse counseling Category: Medical Plan: Patient continues to smoke. Discussed potential long-term complications such as cardiovascular events, worsening COPD, increased risk of malignancy and for control of RA. She follows up regularly with knife setter assembler Dr. Alvarado at [facility]. I asked patient to send me some records of any recent PFTs or CT scans (5) Immunization counseling: Code(s): Z71.85 - Encounter for immunization safety counseling Category: Medical Plan: Discussed importance of vaccination given her rheumatoid arthritis and COPD with ongoing smoking. Advised patient to get flu vaccine and COVID booster in the same day. Hold methotrexate for 1-2 weeks after Plan I spent 47 minutes reviewing patient's chart, evaluating patient, ordering diagnostic workup, counseling patient and documenting in the chart Orders: Orders Complete Blood Count Auto Diff 4 Months M05.79 - Rheumatoid arthritis with rheumatoid factor of multiple sites without organ or systems involvement, Z79.631 - manager long term care (current) use of antimetabolite agent C Reactive Protein 4 Months M05.79 - Rheumatoid arthritis with rheumatoid factor of multiple sites without organ or systems involvement, Z79.631 - group home (current) use of antimetabolite agent Erythrocyte Sedimentation Rate 4 Months M05.79 - Rheumatoid arthritis with rheumatoid factor of multiple sites without organ or systems involvement, Z79.631 - manager long term care (current) use of antimetabolite agent Comprehensive Met. Panel 4 Months M05.79 - Rheumatoid arthritis with rheumatoid factor of multiple sites without organ or systems involvement, Z79.631 - group home (current) use of antimetabolite agent Medications: Refilled methotrexate sodium 15 mg (6 x 2.5 mg) PO QWEEK 96 tabs 0RF M06.9 - Rheumatoid arthritis, unspecified Coding Level of Care Code Est Pt Level 5 (10079) Complex EM visit Add On G2211 Diagnoses Rheumatoid arthritis involving multiple sites with positive rheumatoid factor M05.79 Rheumatoid arthritis location: multiple sites Rheumatoid factor presence: with rheumatoid factor manager long term care methotrexate user Z79.631 Age-related osteoporosis with current pathological fracture with routine healing, subsequent encounter M80.00XD Osteoporosis type: age-related Presence of current pathological fracture: with current pathological fracture Encounter type: subsequent encounter Fracture healing: with routine healing Tobacco abuse counseling Z71.6 Immunization counseling Z71.85
[2024-07-22 09:30] VITALS: BP 120/70; PULSE 75; O2SAT 95; BMI 23.7
== END 2024-07-22 09:50 | disposition home or self-care (01) ==
PROVIDERS: PCP Internal Medicine; Visit Provider Student in an Organized Health Care Education/Training Program
DX: M05.79 Rheumatoid arthritis with rheumatoid factor of multiple sites without organ or systems involvement (principal); Z79.631 Long term (current) use of antimetabolite agent; M80.00XD Age-related osteoporosis with current pathological fracture, unspecified site, subsequent encounter for fracture with routine healing; Z71.6 Tobacco abuse counseling; Z71.85 Encounter for immunization safety counseling
CPT/HCPCS: 99215; G2211

== ENCOUNTER → 2024-07-22 09:20 | Outpatient (BNVA) | payer MEDICARE, OTHER, SELFPAY | PROVIDERS: PCP Internal Medicine; Visit Provider Student in an Organized Health Care Education/Training Program | DX: M05.79 Rheumatoid arthritis with rheumatoid factor of multiple sites without organ or systems involvement (principal); M75.01 Adhesive capsulitis of right shoulder; M81.0 Age-related osteoporosis without current pathological fracture; Z79.631 Long term (current) use of antimetabolite agent; Z71.6 Tobacco abuse counseling; Z71.85 Encounter for immunization safety counseling | CPT/HCPCS: 99212 ==

== ENCOUNTER 2024-08-01 08:41 | Outpatient (REF) | payer MEDICARE, OTHER, SELFPAY ==
--- NOTE | ~2024-08-01 | MM_ITS ---
EXAMINATION: BONE DENSITOMETRY CLINICAL INDICATION: Age-related osteoporosis with current pathological fracture. COMPARISON: This is the patient's baseline examination. TECHNIQUE: Using a [employer] DXA System (software version: 13.1) manufactured by [employer], dual-energy x-ray absorptiometry was performed of the lumbar spine and left hip. The images are of good technical quality. Summary results are attached. FINDINGS: LEFT FEMUR, NECK: BMD 0.677 g/cm2, Z-score -0.6, T-score -2.6, osteoporosis. LEFT FEMUR, TOTAL: BMD 0.754 g/cm2, Z-score -0.2, T-score -2.0, osteopenia. AP SPINE L1-L4: BMD 0.751 g/cm2, Z-score -1.7, T-score -3.6, osteoporosis. IDENTIFIED RISK FACTORS: Early menopause, secondary osteoporosis, history of fracture (adult), rheumatoid arthritis, osteoporosis, current smoker. HISTORY OF FRACTURE: Humerus/shoulder. MEDICATIONS: Calcium supplements or multivitamin, vitamin D. MM/XR DEXA axial skeleton IMPRESSION: 1. DIAGNOSIS: Severe osteoporosis based on the lowest T-score value of -3.6 in the lumbar spine and history of fracture applying World Health Organization criteria. 2. 10-YEAR FRACTURE RISK PREDICTION, FRAX: According to the guidelines, FRAX calculation should only be performed on patients in the osteopenia bone density category. Therefore, FRAX was not performed on this patient. 3. Treatment Recommendations: NOF guidelines recommend consideration for treatment in postmenopausal women and men age 50 and older presenting with the following: -A hip or vertebral (clinical or morphometric) fracture. -T-score less than or equal to -2.5 at the femoral neck or spine after appropriate evaluation to exclude secondary causes. -Low bone mass at the hip or spine and a 10-year fracture probability by FRAX of greater than or equal to 3% for hip fracture or greater than or equal to 20% for major osteoporotic fracture based on the [place] adapted WHO algorithm. 4. Other Recommendations: All treatment decisions require clinical judgment and consideration of individual patient factors, including patient preferences, comorbidities, previous drug use, risk factors not captured in the FRAX model (e.g. frailty, falls, vitamin D deficiency, increased bone turnover, interval significant decline in bone density) and possible under or overestimation of fracture risk by FRAX. Additional medical evaluation for secondary cause of low bone mineral density may be appropriate. FUTURE SCAN RECOMMENDATION: People with diagnosed cases of osteoporosis or at high risk for fracture should have regular bone mineral density tests. For patients eligible for Medicare, routine testing is allowed once every 2 years. The testing frequency can be increased to one year for patients who have rapidly progressing disease, those who are receiving or discontinuing medical therapy to restore bone mass, or have additional risk factors. Electronically signed by: Jake Rust MD 08/01/2024 09:20 AM SUZETTE PERRY
--- OUTSIDE RECORDS SUMMARY | 2024-08-01 08:55 | XMS_ITS | Clinical Summary ---
Author Organization Unknown Care Team Providers Care Jigger Artisan Name Role Phone BRIAN WELSH MD, SASHA Unavailable U roselia LÓPEZ RN, YESSENIA Unavailable Unavailable VON IMELDA ALTERATIONS SUPERVISOR, MICHELLE Unavailable Unavail able KALETINA ALTERATIONS SUPERVISOR, JERMAN Unavailable Unavailab le Payers Payer Name Policy Type Policy Number Effective Date Expira tion Date MEDICARE - [facility] - [facility] [id number] Problems Condition Name Condition Details Condition Category Status Onset Date Resolution Date Last Treatment Date Treating Clinician Comments EMPHYSEMA, UNSPECIFIED Active 08-21 00:00: 00 ACUTE AND CHRONIC RESPIRATORY FAILURE WITH HYPOXIA Active 08-21 00:00: 00 ACUTE AND CHRONIC RESPIRATORY FAILURE WITH HYPERCAPNIA Active 08-21 00:00: 00 ACUTE BRONCHITIS DUE TO OTHER SPECIFIED ORGANISMS Active 08-21 00:00: 00 NON-ST ELEVATION (NSTEMI) MYOCARDIAL INFARCTION Active 08-21 00:00: 00 RHEUMATOID ARTHRITIS, UNSPECIFIED Active 08-21 00:00: 00 ESSENTIAL (PRIMARY) HYPERTENSION Active 08-21 00:00: 00 ANXIETY DISORDER, UNSPECIFIED Active 08-21 00:00: 00 NICOTINE DEPENDENCE, CIGARETTES, UNCOMPLICATE D Active 08-21 00:00: 00 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 Ordering Clinician Indication Dosage Frequency Signature (SIG) Comments Components budesonide- formoterol HFA 80 mcg-4.5 mcg/actuati on aerosol inhaler 1-12 00:00: 00 10-11 23:59 :00 No [id number] 2 puff TWICE DAILY 2 puff TWICE DAILY (route: inhalation ) Med Classific ation: Respirato ry Therapy Agents Aspirin Childrens 81 mg chewable tablet 2-12 00:00: 00 Yes [id number] 1 tablet DAILY 1 tablet DAILY (route: oral) Med Classific ation: Hematolog ical Agents atorvastati n 80 mg tablet 2-12 00:00: 00 Yes [id number] 1 tablet DAILY 1 tablet DAILY (route: oral) Med Classific ation: Cardiovas cular Therapy Agents escitalopra m 5 mg tablet 2- 00:00: 00 Yes [id number] 1 tablet 2 TIMES DAILY 1 tablet 2 TIMES DAILY (route: oral) Med Classific ation: Central Nervous System Agents guaifenesin ER 600 mg tablet, extended release 12 hr 2-12 00:00: 00 Yes [id number] 1 tablet EVERY 12 HOURS 1 tablet EVERY 12 HOURS (route: oral) Med Classific ation: Respirato ry Therapy Agents isosorbide mononitrate ER 30 mg tablet,exte nded release 24 hr 2-12 00:00: 00 Yes [id number] 1 tablet DAILY 1 tablet DAILY (route: oral) Med Classific ation: Cardiovas cular Therapy Agents labetalol 100 mg tablet 2-12 00:00: 00 Yes [id number] 1 tablet 3 TIMES DAILY 1 tablet 3 TIMES DAILY (route: oral) Med Classific ation: Cardiovas cular Therapy Agents lisinopril 5 mg tablet 2-12 00:00: 00 Yes [id number] 1 tablet DAILY 1 tablet DAILY (route: oral) Med Classific ation: Cardiovas cular Therapy Agents multivitami n tablet 2-12 00:00: 00 Yes [id number] 1 tablet DAILY 1 tablet DAILY (route: oral) Med Classific ation: Electroly te Balance-N utritiona l Products pantoprazol e 40 mg tablet,bryn yed release 2- 00:00: 00 Yes [id number] 1 tablet DAILY 1 tablet DAILY (route: oral) Med Classific ation: Gastroint estinal Therapy Agents prednisone 20 mg tablet 2-12 00:00: 00 Yes [id number] 2 tablet DAILY 2 tablet DAILY (route: oral) Med Classific ation: Endocrine thiamine mononitrate (vitamin B1) 100 mg tablet - 00:00: 00 Yes [id number] 1 tablet DAILY 1 tablet DAILY (route: oral) Med Classific ation: Electroly te Balance-N utritiona l Products Ventolin HFA 90 mcg/actuati on aerosol inhaler 10-02 00:00: 00 Yes [id number] 2 puff DAILY 2 puff DAILY (route: inhalation ) Med Classific ation: Respirato ry Therapy Agents OXYGEN 10-02 00:00: 00 Yes [id number] 2 Liter O2 - PRN 2 Liter O 2 - PRN (route: Oxygen) Med Classific ation: Medical Oxygen Trelegy Ellipta 200 mcg-62.5 mcg-25 mcg powder for inhalation - 00:00: 00 Yes [id number] 1 inhalat ion DAILY 1 inhalation DAILY (route: inhalation ) Med Classific ation: Respirato ry Therapy Agents Immunizations Ordered Immunization Name Filled Immunization Name Date Status Comments Refusal Reason INFLUENZA, TIV (INACTIVATED) 2022-07-07 00:00:00 COVID-19, COVID-19 2022-07-04 00:00:00 PNEUMOCOCCAL (PPV), PPV 2022-05-30 00:00:00 SHINGLES, TIV (INACTIVATED) 2021-09-27 00:00:00 Vital Signs Vital Name Observation Time Observation Value Commen ts Temperature 2022-11-11 10:26:00.000 97.5 [degF] Temperature 2022-11-04 08:16:00.000 97.6 [degF] Temperature 2022-11-03 11:51:00.000 98.4 [degF] Temperature 2022-10-31 09:36:00.000 97.6 [degF] Temperature 2022-10-28 09:25:00.000 97.6 [degF] Temperature 2022-10-27 10:17:00.000 97.2 [degF] Temperature 2022-10-26 09:16:00.000 97.4 [degF] Temperature 2022-10-18 11:54:00.000 97.4 [degF] Temperature 2022-10-17 09:11:00.000 97.5 [degF] Temperature 2022-10-14 09:28:00.000 97.6 [degF] Temperature 2022-10-13 12:31:00.000 98.9 [degF] Temperature 2022-10-12 08:08:00.000 98 [degF] Temperature 2022-10-11 10:10:00.000 98.5 [degF] Temperature 2022-10-06 17:14:00.000 97.4 [degF] Temperature 2022-10-05 08:34:00.000 97.6 [degF] Temperature 2022-10-04 20:52:00.000 98.5 [degF] Temperature 2022-10-02 09:13:00.000 97.8 [degF] BMI (%) 2022-10-02 09:13:00.000 22 kg/m2 Height 2022-10-02 09:13:00.000 64 [in_us] Pulse 2022-11-11 10:26:00.000 74 /min Pulse 2022-11-03 11:51:00.000 68 /min Pulse 2022-10-31 09:36:00.000 70 /min Pulse 2022-10-28 09:25:00.000 68 /min Pulse 2022-10-27 10:17:00.000 66 /min Pulse 2022-10-26 09:16:00.000 82 /min Pulse 2022-10-19 09:12:00.000 85 /min Pulse 2022-10-18 11:54:00.000 68 /min Pulse 2022-10-17 09:11:00.000 68 /min Pulse 2022-10-14 09:28:00.000 66 /min Pulse 2022-10-13 12:31:00.000 64 /min Pulse 2022-10-12 08:08:00.000 70 /min Pulse 2022-10-11 10:10:00.000 72 /min Pulse 2022-10-06 17:14:00.000 67 /min Pulse 2022-10-05 08:34:00.000 66 /min Pulse 2022-10-04 20:52:00.000 88 /min Pulse 2022-10-02 09:13:00.000 73 /min O2 Saturation (%) 2022-11-11 10:26:00.000 94 % O2 Saturation (%) 2022-11-03 11:51:00.000 96 % O2 Saturation (%) 2022-10-27 10:17:00.000 97 % O2 Saturation (%) 2022-10-19 09:12:00.000 97 % O2 Saturation (%) 2022-10-18 11:54:00.000 97 % O2 Saturation (%) 2022-10-13 12:31:00.000 97 % O2 Saturation (%) 2022-10-12 08:08:00.000 96 % O2 Saturation (%) 2022-10-11 10:10:00.000 97 % O2 Saturation (%) 2022-10-06 17:14:00.000 95 % O2 Saturation (%) 2022-10-05 08:37:00.000 98 % O2 Saturation (%) 2022-10-04 20:52:00.000 92 % O2 Saturation (%) 2022-10-02 09:13:00.000 93 % Respirations 2022-11-11 10:26:00.000 20 /min Respirations 2022-11-03 11:51:00.000 20 /min Respirations 2022-10-31 09:36:00.000 18 /min Respirations 2022-10-27 10:17:00.000 20 /min Respirations 2022-10-26 09:16:00.000 18 /min Respirations 2022-10-19 09:12:00.000 18 /min Respirations 2022-10-18 11:54:00.000 20 /min Respirations 2022-10-17 09:11:00.000 18 /min Respirations 2022-10-14 09:28:00.000 18 /min Respirations 2022-10-13 12:31:00.000 20 /min Respirations 2022-10-12 08:08:00.000 18 /min Respirations 2022-10-11 10:10:00.000 20 /min Respirations 2022-10-06 17:14:00.000 18 /min Respirations 2022-10-05 08:34:00.000 18 /min Respirations 2022-10-04 20:52:00.000 20 /min Respirations 2022-10-02 09:13:00.000 20 /min Weight (lbs) 2022-10-02 09:13:00.000 130 [lb_av] Systolic Blood Pressure 2022-11-11 10:26:00.000 138 mm [Hg] Systolic Blood Pressure 2022-11-04 08:17:00.000 145 mm [Hg] Systolic Blood Pressure 2022-11-03 11:51:00.000 146 mm [Hg] Systolic Blood Pressure 2022-10-31 09:36:00.000 128 mm [Hg] Systolic Blood Pressure 2022-10-28 09:25:00.000 125 mm [Hg] Systolic Blood Pressure 2022-10-27 10:17:00.000 124 mm [Hg] Systolic Blood Pressure 2022-10-26 09:16:00.000 112 mm [Hg] Systolic Blood Pressure 2022-10-18 11:54:00.000 100 mm [Hg] Systolic Blood Pressure 2022-10-14 09:28:00.000 112 mm [Hg] Systolic Blood Pressure 2022-10-13 12:31:00.000 104 mm [Hg] Systolic Blood Pressure 2022-10-12 08:08:00.000 110 mm [Hg] Systolic Blood Pressure 2022-10-11 10:10:00.000 108 mm [Hg] Systolic Blood Pressure 2022-10-06 17:14:00.000 142 mm [Hg] Systolic Blood Pressure 2022-10-05 08:34:00.000 105 mm [Hg] Systolic Blood Pressure 2022-10-04 20:52:00.000 122 mm [Hg] Systolic Blood Pressure 2022-10-02 09:13:00.000 102 mm [Hg] Diastolic Blood Pressure 2022-11-11 10:26:00.000 80 mm [Hg] Diastolic Blood Pressure 2022-11-04 08:17:00.000 80 mm [Hg] Diastolic Blood Pressure 2022-11-03 11:51:00.000 82 mm [Hg] Diastolic Blood Pressure 2022-10-31 09:36:00.000 66 mm [Hg] Diastolic Blood Pressure 2022-10-28 09:25:00.000 65 mm [Hg] Diastolic Blood Pressure 2022-10-27 10:17:00.000 66 mm [Hg] Diastolic Blood Pressure 2022-10-26 09:16:00.000 64 mm [Hg] Diastolic Blood Pressure 2022-10-18 11:54:00.000 60 mm [Hg] Diastolic Blood Pressure 2022-10-14 09:28:00.000 64 mm [Hg] Diastolic Blood Pressure 2022-10-13 12:31:00.000 60 mm [Hg] Diastolic Blood Pressure 2022-10-12 08:08:00.000 62 mm [Hg] Diastolic Blood Pressure 2022-10-11 10:10:00.000 60 mm [Hg] Diastolic Blood Pressure 2022-10-06 17:14:00.000 72 mm [Hg] Diastolic Blood Pressure 2022-10-05 08:34:00.000 62 mm [Hg] Diastolic Blood Pressure 2022-10-04 20:52:00.000 62 mm [Hg] Diastolic Blood Pressure 2022-10-02 09:13:00.000 60 mm [Hg] Plan of Treatment Planned Activity Planned Date Details Comments Future Scheduled Test SKILLED NU RSE TO EVALUATE PATIENT, IDENTIFY PRIMARY AND CO-MORBID CONDITIONS CODED PER CODING GUIDELINES, AND DEVELOP PATIENT SPECIFIC PLAN OF CARE THAT INCLUDES PATIENT GOAL FOR HOME HEALTH. CLINICAL SUMMARY SOC 10/02 THE PATIENT IS RECEIVING [facility] DUE TO CHRONIC DISEASE MANAGEMENT AND EDUCATION RECENT HOSPITALIZATION/INPATIENT ADMISSION RELATED TO: COPD EXACERBATION NEW OR CHANGED MEDICATIONS: STARTED ON ASPIRIN, ATORVASTATIN, PREDNISONE, LABETALOL AND LISINOPRIL PATIENT LIVING SITUATION/CAREGIVER STATUS: LIVES WITH RECENT FALLS: DENIES SUMMARIZE SKILLED NEED: FPC NEEDED FOR MEDICATION MANAGEMENT AND CHRONIC DISEASE MANAGEMENT AND EDUCATION ADDITIONAL DISCIPLINES NEEDED OR DECLINED ORDERED SERVICES: PT TO EVALUATE AND TREAT NECESSARY [code = SKILLED NURSE TO EVALUATE PATIENT, IDENTIFY PRIMARY AND CO-MORBID CONDITIONS CODED PER CODING GUIDELINES, AND DEVELOP PATIENT SPECIFIC PLAN OF CARE THAT INCLUDES PATIENT GOAL FOR HOME HEALTH. CLINICAL SUMMARY SOC 10/02 THE PATIENT IS RECEIVING [facility] DUE TO CHRONIC DISEASE MANAGEMENT AND EDUCATION RECENT HOSPITALIZATION/INPATIENT ADMISSION RELATED TO: COPD EXACERBATION NEW OR CHANGED MEDICATIONS: STARTED ON ASPIRIN, ATORVASTATIN, PREDNISONE, LABETALOL AND LISINOPRIL PATIENT LIVING SITUATION/CAREGIVER STATUS: LIVES WITH RECENT FALLS: DENIES SUMMARIZE SKILLED NEED: FPC NEEDED FOR MEDICATION MANAGEMENT AND CHRONIC DISEASE MANAGEMENT AND EDUCATION ADDITIONAL DISCIPLINES NEEDED OR DECLINED ORDERED SERVICES: PT TO EVALUATE AND TREAT NECESSARY ] Future Scheduled Test SKILLED NU RSE TO PROVIDE TEACHING/REINFORCEMENT RELATED TO URINARY INCONTINENCE. [code = SKILLED NURSE TO PROVIDE TEACHING/REINFORCEMENT RELATED TO URINARY INCONTINENCE.] Future Scheduled Test SKILLED NU RSE TO REVIEW PATIENT MEDICATIONS. INSTRUCT PATIENT/CAREGIVER ON MONITORING OF EFFECTIVENESS, ADVERSE DRUG REACTIONS, SIDE EFFECTS OF ALL MEDICATIONS (PRESCRIPTION/-OTC), AND HOW AND WHEN TO REPORT PROBLEMS. [code = SKILLED NURSE TO REVIEW PATIENT MEDICATIONS. INSTRUCT PATIENT/CAREGIVER ON MONITORING OF EFFECTIVENESS, ADVERSE DRUG REACTIONS, SIDE EFFECTS OF ALL MEDICATIONS (PRESCRIPTION/-OTC), AND HOW AND WHEN TO REPORT PROBLEMS.] Future Scheduled Test SKILLED NU RSE TO PERFORM HOME SAFETY AND FALL ASSESSMENT AND PROVIDE INSTRUCTION TO IMPLEMENT HOME SAFETY AND FALL PREVENTION STRATEGIES. [code = SKILLED NURSE TO PERFORM HOME SAFETY AND FALL ASSESSMENT AND PROVIDE INSTRUCTION TO IMPLEMENT HOME SAFETY AND FALL PREVENTION STRATEGIES.] Future Scheduled Test SKILLED NU RSE TO ASSESS ANXIETY AND PROVIDE ASSISTANCE TO PATIENT FOR UNDERSTANDING AND MANAGEMENT OF FEELINGS. [code = SKILLED NURSE TO ASSESS ANXIETY AND PROVIDE ASSISTANCE TO PATIENT FOR UNDERSTANDING AND MANAGEMENT OF FEELINGS.] Future Scheduled Test OXYGEN VIA NASAL CANNULA @ 3 LITERS PRN. SKILLED NURSE FOR O/A AND SKILLED TEACHING OF SAFE OXYGEN USE IN THE HOME. [code = OXYGEN VIA NASAL CANNULA @ 3 LITERS PRN. SKILLED NURSE FOR O/A AND SKILLED TEACHING OF SAFE OXYGEN USE IN THE HOME.] Future Scheduled Test PATIENT ALAS S A RISK OF HOSPITALIZATION AND ED USE. SKILLED NURSE TO ESTABLISH SUPPORT MEASURES TO MINIMIZE RISK OF HOSPITALIZATION AND ED USE, AND INSTRUCT PATIENT/CAREGIVER ON METHODS TO REDUCE AVOIDABLE HOSPITALIZATION AND ED USE. [code = PATIENT HAS A RISK OF HOSPITALIZATION AND ED USE. SKILLED NURSE TO ESTABLISH SUPPORT MEASURES TO MINIMIZE RISK OF HOSPITALIZATION AND ED USE, AND INSTRUCT PATIENT/CAREGIVER ON METHODS TO REDUCE AVOIDABLE HOSPITALIZATION AND ED USE.] Future Scheduled Test SKILLED NU RSE TO PROVIDE INSTRUCTION TO PATIENT/CAREGIVER RELATED TO DISCHARGE PLANNING. [code = SKILLED NURSE TO PROVIDE INSTRUCTION TO PATIENT/CAREGIVER RELATED TO DISCHARGE PLANNING.] Future Scheduled Test SKILLED NU RSE FOR O/A, TEACHING, AND MANAGEMENT OF NSTEMI. [code = SKILLED NURSE FOR O/A, TEACHING, AND MANAGEMENT OF NSTEMI.] Future Scheduled Test SKILLED NU RSE FOR OBSERVATION AND ASSESSMENT OF PATIENTS PAIN LEVEL AND EFFECTIVENESS OF PAIN MANAGEMENT REGIMEN. SKILLED NURSE TO INSTRUCT PATIENT/CAREGIVER REGARDING PHARMACOLOGIC AND NON-PHARMACOLOGIC PAIN CONTROL MEASURES. SKILLED NURSE TO REPORT TO PHYSICIAN IF PAIN IS UNCONTROLLED WITH CURRENT PAIN MANAGEMENT REGIMEN. [code = SKILLED NURSE FOR OBSERVATION AND ASSESSMENT OF PATIENTS PAIN LEVEL AND EFFECTIVENESS OF PAIN MANAGEMENT REGIMEN. SKILLED NURSE TO INSTRUCT PATIENT/CAREGIVER REGARDING PHARMACOLOGIC AND NON-PHARMACOLOGIC PAIN CONTROL MEASURES. SKILLED NURSE TO REPORT TO PHYSICIAN IF PAIN IS UNCONTROLLED WITH CURRENT PAIN MANAGEMENT REGIMEN.] Future Scheduled Test MEDICAL SO CIAL WORKER TO EVALUATE PATIENT FOR AVAILABLE COMMUNITY RESOURCES [code = CUTTING TABLE OPERATOR FIRST TO EVALUATE PATIENT FOR AVAILABLE COMMUNITY RESOURCES ] Future Scheduled Test SKILLED NU RSE FOR O/A OF RESPIRATORY SYSTEM TO IDENTIFY CHANGES ASSOCIATED WITH EXACERBATION AND TO PROVIDE SKILLED TEACHING ON MANAGEMENT OF ACUTE/CHRONIC RESPIRATORY FAILURE WITH HYPOXIA DISEASE PROCESS. [code = SKILLED NURSE FOR O/A OF RESPIRATORY SYSTEM TO IDENTIFY CHANGES ASSOCIATED WITH EXACERBATION AND TO PROVIDE SKILLED TEACHING ON MANAGEMENT OF ACUTE/CHRONIC RESPIRATORY FAILURE WITH HYPOXIA DISEASE PROCESS.] Future Scheduled Test SKILLED NU RSE FOR O/A OF MUSCULOSKELETAL STATUS AND TEACHING ON MEASURES TO MANAGE AND TO MAINTAIN SAFETY WITH ACTIVITY [code = SKILLED NURSE FOR O/A OF MUSCULOSKELETAL STATUS AND TEACHING ON MEASURES TO MANAGE AND TO MAINTAIN SAFETY WITH ACTIVITY] Future Scheduled Test SKILLED NU RSE TO ASSESS PATIENT'S SKIN INTEGRITY AND INSTRUCT PATIENT/CAREGIVER ON MEASURES TO PREVENT PRESSURE ULCERS [code = SKILLED NURSE TO ASSESS PATIENT'S SKIN INTEGRITY AND INSTRUCT PATIENT/CAREGIVER ON MEASURES TO PREVENT PRESSURE ULCERS] Future Scheduled Test PHYSICAL T HERAPIST TO EVALUATE PATIENT FOR STRENGTHENING AND MOBILITY [code = PHYSICAL THERAPIST TO EVALUATE PATIENT FOR STRENGTHENING AND MOBILITY ] Future Scheduled Test SKILLED NU RSE TO PROVIDE TEACHING ON SIGNS AND SYMPTOMS AND MANAGEMENT OF HYPERTENSION. [code = SKILLED NURSE TO PROVIDE TEACHING ON SIGNS AND SYMPTOMS AND MANAGEMENT OF HYPERTENSION.] Future Scheduled Test SKILLED NU RSE TO INSTRUCT PATIENT/CAREGIVER ON COPD TO INCLUDE TEACHING AND SELF-MANAGEMENT RELATED TO COPD DISEASE PROCESS, SIGNS AND SYMPTOMS, AND COMPLICATIONS. [code = SKILLED NURSE TO INSTRUCT PATIENT/CAREGIVER ON COPD TO INCLUDE TEACHING AND SELF-MANAGEMENT RELATED TO COPD DISEASE PROCESS, SIGNS AND SYMPTOMS, AND COMPLICATIONS.] Future Scheduled Test VIRTUAL SIT FREQUENCY: 1-5 PER WEEK X 2 WEEKS, AND 5 PRN VIRTUAL VISITS MAY BE PERFORMED UTILIZING TELECOMMUNICATIONS SYSTEM TO OPTIMIZE SKILLED SERVICES FURNISHED ON THE PLAN OF CARE. SKILLED NURSE TO ESTABLISH SUPPORT MEASURES TO MINIMIZE RISK OF REHOSPITALIZATION, AND INSTRUCT PATIENT/CAREGIVER ON METHODS TO REDUCE AVOIDABLE HOSPITALIZATION. [code = VIRTUAL VISIT FREQUENCY: 1-5 PER WEEK X 2 WEEKS, AND 5 PRN VIRTUAL VISITS MAY BE PERFORMED UTILIZING TELECOMMUNICATIONS SYSTEM TO OPTIMIZE SKILLED SERVICES FURNISHED ON THE PLAN OF CARE. SKILLED NURSE TO ESTABLISH SUPPORT MEASURES TO MINIMIZE RISK OF REHOSPITALIZATION, AND INSTRUCT PATIENT/CAREGIVER ON METHODS TO REDUCE AVOIDABLE HOSPITALIZATION.] Future Scheduled Test MEDICAL SO CIAL WORKER EVALUATION PERFORMED. NO ADDITIONAL VISITS REQUIRED. [code = CUTTING TABLE OPERATOR FIRST EVALUATION PERFORMED. NO ADDITIONAL VISITS REQUIRED.] Future Scheduled Test PHYSICAL T HERAPIST TO EVALUATE PATIENT SECONDARY TO FUNCTIONAL DEFICITS/SAFETY CONCERNS. PHYSICAL THERAPY TO ESTABLISH /UPGRADE/DOWNGRADE THERAPEUTIC EXERCISE PROGRAM AND INSTRUCT PATIENT/CAREGIVER ON EXERCISE PRECAUTIONS WITH WRITTEN HOME PROGRAM. MAY INCLUDE PROM, AAROM, AROM, RROM APPROPRIATE TO IMPROVE FUNCTIONAL STRENGTH AND RANGE OF MOTION. PHYSICAL THERAPY TO INSTRUCT PATIENT/CAREGIVER ON SAFE TRANSFER TECHNIQUES USING PROPER BODY MECHANICS AND EQUIPMENT. PHYSICAL THERAPY TO INSTRUCT PATIENT/CAREGIVER ON GAIT TRAINING TECHNIQUES USING APPROPRIATE ASSISTIVE DEVICE, PROPER BODY MECHANICS TO IMPROVE MOBILITY, AND PREVENT INJURY OF PATIENT AND/OR CAREGIVER. PHYSICAL THERAPY EVALUATION 10/05/22 PATIENT IS A 72 YEAR OLD FEMALE REFERRED TO HOME PHYSICAL THERAPY AFTER HOSPITALIZATION SECONDARY TO COPD EXACERBATION. PATIENT CURRENTLY ON 3 L OF CONTINUOUS OXYGEN. PATIENT LIVES WITH HER IN A SINGLE LEVEL HOME WITH TWO STEPS TO ENTER AND EXIT. PAST MEDICAL HISTORY INCLUDES: COPD, RA, NSTEMI, ANXIETY, HTN CURRENTLY PATIENT REQUIRES SUPERVISION FOR SIT TO STAND TRANSFERS SHE LACKED ADEQUATE WEIGHT SHIFT OVER BASE OF SUPPORT CAUSING HER TO FALL BACK INTO CHAIR AT TIMES. PATIENT REQUIRED SUPERVISION FOR AMBULATION USING WALKER AND MINIMUM ASSIST TO MANAGE OXYGEN TUBING SHE GOT IT TANGLED AROUND HER FEET. PATIENT REQUIRED CONTACT GUARD ASSIST TO NEGOTIATE TWO STEPS INTO AND OUT OF HOME. VERBAL CUES GIVEN FOR CORRECT SEQUENCING AND SAFETY. BILATERAL LOWER EXTREMITY STRENGTH TESTED AT 3 - /5 SHE WAS UNABLE TO MOVE THROUGH FULL AVAILABLE RANGE OF MOTION AGAINST GRAVITY. PATIENT DENIED PAIN AT THIS TIME. JOSE WILL BENEFIT FROM CONTINUED PHYSICAL THERAPY SECONDARY TO THE ABOVE DEFICIT WHICH LIMITS HER ABILITY TO FUNCTION SAFELY INSIDE AND OUTSIDE OF HER HOME MAKING HER HOMEBOUND. PATIENT IS EAGER TO IMPROVE HER LEVEL OF FUNCTION AND WAS AN ACTIVE PARTICIPANT IN THE DEVELOPMENT OF HER PLAN OF CARE PLAN: 1X/WK X 1WK, 2X/WK X 5WKS,1X/WK X 2WKS FOR TRANSFER TRAINING, GAIT TRAINING, LOWER EXTREMITY STRENGTHENING WITH THE DEVELOPMENT OF A HOME EXERCISE PROGRAM, PATIENT AND CAREGIVER EDUCATION FOR SAFETY AND FALL PREVENTION WELL FOR ENERGY CONSERVATION [code = PHYSICAL THERAPIST TO EVALUATE PATIENT SECONDARY TO FUNCTIONAL DEFICITS/SAFETY CONCERNS. PHYSICAL THERAPY TO ESTABLISH /UPGRADE/DOWNGRADE THERAPEUTIC EXERCISE PROGRAM AND INSTRUCT PATIENT/CAREGIVER ON EXERCISE PRECAUTIONS WITH WRITTEN HOME PROGRAM. MAY INCLUDE PROM, AAROM, AROM, RROM APPROPRIATE TO IMPROVE FUNCTIONAL STRENGTH AND RANGE OF MOTION. PHYSICAL THERAPY TO INSTRUCT PATIENT/CAREGIVER ON SAFE TRANSFER TECHNIQUES USING PROPER BODY MECHANICS AND EQUIPMENT. PHYSICAL THERAPY TO INSTRUCT PATIENT/CAREGIVER ON GAIT TRAINING TECHNIQUES USING APPROPRIATE ASSISTIVE DEVICE, PROPER BODY MECHANICS TO IMPROVE MOBILITY, AND PREVENT INJURY OF PATIENT AND/OR CAREGIVER. PHYSICAL THERAPY EVALUATION 10/05/22 PATIENT IS A 72 YEAR OLD FEMALE REFERRED TO HOME PHYSICAL THERAPY AFTER HOSPITALIZATION SECONDARY TO COPD EXACERBATION. PATIENT CURRENTLY ON 3 L OF CONTINUOUS OXYGEN. PATIENT LIVES WITH HER IN A SINGLE LEVEL HOME WITH TWO STEPS TO ENTER AND EXIT. PAST MEDICAL HISTORY INCLUDES: COPD, RA, NSTEMI, ANXIETY, HTN CURRENTLY PATIENT REQUIRES SUPERVISION FOR SIT TO STAND TRANSFERS SHE LACKED ADEQUATE WEIGHT SHIFT OVER BASE OF SUPPORT CAUSING HER TO FALL BACK INTO CHAIR AT TIMES. PATIENT REQUIRED SUPERVISION FOR AMBULATION USING WALKER AND MINIMUM ASSIST TO MANAGE OXYGEN TUBING SHE GOT IT TANGLED AROUND HER FEET. PATIENT REQUIRED CONTACT GUARD ASSIST TO NEGOTIATE TWO STEPS INTO AND OUT OF HOME. VERBAL CUES GIVEN FOR CORRECT SEQUENCING AND SAFETY. BILATERAL LOWER EXTREMITY STRENGTH TESTED AT 3 - /5 SHE WAS UNABLE TO MOVE THROUGH FULL AVAILABLE RANGE OF MOTION AGAINST GRAVITY. PATIENT DENIED PAIN AT THIS TIME. JOSE WILL BENEFIT FROM CONTINUED PHYSICAL THERAPY SECONDARY TO THE ABOVE DEFICIT WHICH LIMITS HER ABILITY TO FUNCTION SAFELY INSIDE AND OUTSIDE OF HER HOME MAKING HER HOMEBOUND. PATIENT IS EAGER TO IMPROVE HER LEVEL OF FUNCTION AND WAS AN ACTIVE PARTICIPANT IN THE DEVELOPMENT OF HER PLAN OF CARE PLAN: 1X/WK X 1WK, 2X/WK X 5WKS,1X/WK X 2WKS FOR TRANSFER TRAINING, GAIT TRAINING, LOWER EXTREMITY STRENGTHENING WITH THE DEVELOPMENT OF A HOME EXERCISE PROGRAM, PATIENT AND CAREGIVER EDUCATION FOR SAFETY AND FALL PREVENTION WELL FOR ENERGY CONSERVATION] Goal 2022-11-11 Patient Goal - GET BACK TO [facility] Goal Provider Goal - A PLAN OF CARE WILL BE ESTABLISHED THAT MEETS PATIENT'S FPC NEEDS AND INCLUDES PATIENT GOAL FOR HOME HEALTH. Goal Provider Goal - PATIENT / CAREGIVER WILL VERBALIZE UNDERSTANDING OF EFFECTS OF URINARY INCONTINENCE BY THE END OF THE CERTIFICATION PERIOD. Goal Provider Goal - PATIENT/CAREGIVER WILL VERBALIZE UNDERSTANDING OF EDUCATION PROVIDED ON MEDICATIONS BY THE END OF THE CERTIFICATION PERIOD. Goal Provider Goal - PATIENT/CAREGIVER WILL VERBALIZE/DEMONSTRATE EFFECTIVE HOME SAFETY AND FALL PREVENTION STRATEGIES THROUGHOUT CERTIFICATION PERIOD. Goal Provider Goal - SYMPTOMS OF ANXIETY ARE IDENTIFIED AND INTERVENTIONS INITIATED TO ENABLE PATIENT TO UNDERSTAND AND MANAGE FEELINGS BY THE END OF THE EPISODE. Goal Provider Goal - PATIENT/CAREGIVER WILL VERBALIZE/DEMONSTRATE UNDERSTANDING OF SAFE OXYGEN USE IN THE HOME BY END OF CERT PERIOD Goal Provider Goal - PATIENT WILL HAVE SUPPORT MEASURES ESTABLISHED TO PREVENT HOSPITALIZATION AND ED USE AND PATIENT/CAREGIVER WILL VERBALIZE/DEMONSTRATE METHODS TO REDUCE AVOIDABLE HOSPITALIZATION AND ED USE BY END OF CERT PERIOD Goal Provider Goal - PATIENT/CAREGIVER WILL VERBALIZE UNDERSTANDING OF DISCHARGE PLANNING INSTRUCTIONS BY DATE OF DISCHARGE. Goal Provider Goal - PATIENT/CAREGIVER WILL VERBALIZE/DEMONSTRATE MANAGEMENT OF CARDIAC DISEASE PROCESS AND EXACERBATIONS WILL BE IDENTIFIED AND PROMPTLY REPORTED THROUGHOUT THE CERTIFICATION PERIOD. Goal Provider Goal - PATIENT/CAREGIVER WILL DEMONSTRATE UNDERSTANDING OF PHARMACOLOGIC AND NONPHARMACOLOGIC PAIN CONTROL MEASURES AND PATIENT WILL HAVE IMPROVEMENT IN PAIN INTERFERING WITH ACTIVITY EVIDENCED BY PAIN CONTROLLED AT LEVEL OF 7 OR LESS BY END OF CERTIFICATION PERIOD. Goal Provider Goal - CUTTING TABLE OPERATOR FIRST TO COMPLETE EVALUATION TO ADDRESS THE PATIENTS SOCIAL AND EMOTIONAL FACTORS AND/OR WRITTEN PLAN OF TREATMENT ESTABLISHED FOR THE PHYSICIAN'S SIGNATURE. Goal Provider Goal - PATIENT/CAREGIVER WILL VERBALIZE/DEMONSTRATE MANAGEMENT OF RESPIRATORY DISEASE PROCESS. CHANGES IN RESPIRATORY STATUS WILL BE IDENTIFIED AND REPORTED TO PHYSICIAN FOR PROMPT INTERVENTION THROUGHOUT THE CERTIFICATION PERIOD. Goal Provider Goal - PATIENT/CAREGIVER WILL VERBALIZE/DEMONSTRATE ABILITY TO MANAGE MUSCULOSKELETAL DISEASE WHILE MAINTAINING SAFETY BY END OF CERT PERIOD Goal Provider Goal - PATIENT/CAREGIVER WILL VERBALIZE UNDERSTANDING OF PRESSURE ULCER PREVENTION BY THE END OF THE EPISODE. Goal Provider Goal - A PHYSICAL THERAPY EVALUATION TO BE COMPLETED WITH RECOMMENDATIONS AND/OR WRITTEN PLAN OF TREATMENT ESTABLISHED FOR PHYSICIANS SIGNATURE. Goal Provider Goal - PATIENT/CAREGIVER WILL VERBALIZE SIGNS AND SYMPTOMS OF HYPERTENSION AND WILL BE ABLE TO DEMONSTRATE ABILITY TO MANAGE EXACERBATION BY END OF CERT PERIOD Goal Provider Goal - PATIENT/CAREGIVER WILL VERBALIZE/DEMONSTRATE KNOWLEDGE AND MANAGEMENT OF COPD BY END OF CERT PERIOD Goal Provider Goal - PATIENT/CAREGIVER WILL UTILIZE VIRTUAL VISITS TO ACHIEVE GOALS OUTLINED ON THE PLAN OF CARE. PATIENT WILL HAVE SUPPORT MEASURES ESTABLISHED TO PREVENT HOSPITALIZATION AND PATIENT/CAREGIVER WILL VERBALIZE/DEMONSTRATE METHODS TO REDUCE AVOIDABLE HOSPITALIZATION THROUGHOUT THE CERTIFICATION PERIOD. Goal Provider Goal - NONE Goal Provider Goal - PHYSICAL THERAPY EVALUATION TO BE COMPLETED WITH RECOMMENDATIONS AND/OR WRITTEN TREATMENT PLAN OF CARE ESTABLISHED FOR THE PHYSICIANS SIGNATURE PATIENT/CAREGIVER WILL PERFORM THERAPEUTIC EXERCISE/S AND DEMONSTRATE PARTICIPATION IN A HOME PROGRAM TO IMPROVE FUNCTION PATIENT/CAREGIVER WILL DEMONSTRATE SAFE TRANSFERS USING APPROPRIATE ASSISTIVE DEVICE, BODY MECHANICS AND EQUIPMENT TO IMPROVE FUNCTION PATIENT/CAREGIVER WILL DEMONSTRATE IMPROVED GAIT TECHNIQUES TO MINIMIZE RISK OF INJURY AND INCREASE FUNCTION Reason for Visit INDEPENDENT IN THE COMMUNITY Encounters Start Date/Time End Date/Time Encounter Type Admission Type Attending [facility] Care Department Encounter ID Discharge Date Discharge Status Discharge Condition Discharge Reason Percent Goals Met 2022-10-02 00:00:00 2022-11-11 00:00:00 Outpatient NEW ADMISSION YESSENIA LÓPEZ [facility] [id number] 00:00:00 DISCHARGE TO HOME OR SELF CARE INDEPENDEN T IN THE COMMUNITY GOALS MET ( ONLY) 72.73
== END 2024-08-01 08:42 | disposition home or self-care (01) ==
LOC: HO.MAMMO 08:41
PROVIDERS: Visit Provider Student in an Organized Health Care Education/Training Program
DX: M80.021D Age-related osteoporosis with current pathological fracture, right humerus, subsequent encounter for fracture with routine healing (principal); M85.852 Other specified disorders of bone density and structure, left thigh
CPT/HCPCS: 77080

== ENCOUNTER 2024-11-20 10:46 | Outpatient (REF) | payer MEDICARE, OTHER, SELFPAY ==
--- OUTSIDE RECORDS SUMMARY | 2024-11-20 12:54 | XMS_ITS | Clinical Summary ---
Author Organization [address] [facility] Address [address] [place] [address] Phone Care Team Providers Care Carbide Operator Name Role Phone Corina Mercedes MD Primary Care Prov ider Allergies Active Allergy Reactions Criticality Noted Date Comments Penicillins 09/20/2024 Medications denosumab (Prolia) 60 mg/mL syringe syringe Inject 1 mL (60 mg total) under the skin every 6 (six) months. 09/18/2023 Active folic acid (FOLVITE) 800 mcg tablet Take 0.5 tablets (400 mcg total) by mouth 1 (one) time each day. Active thiamine 100 mg tablet Take 1 tablet (100 mg total) by mouth 1 (one) time each day. 09/29/2022 Active methotrexate 2.5 mg tablet Take 6 tablets (15 mg total) by mouth 1 (one) time per week 02/01/2023 Active multivitamin tablet Take 1 tablet by mouth 1 (one) time each day. 10/28/2022 Active Trelegy Ellipta 200-62.5-25 mcg inhaler Inhale 1 puff (200 mcg total) by mouth 1 (one) time each day. 10/25/2022 Active albuterol HFA (PROAIR HFA ; PROVENTIL HFA ; VENTOLIN HFA) 90 mcg/actuation inhaler Inhale by mouth. Inhale into the lungs. 01/29/2021 Active ibuprofen (ADVIL,MOTRIN) 200 mg tablet Take 1 tablet (200 mg total) by mouth every 6 (six) hours. Take 200 mg by mouth every 6 hours as needed. Active lisinopriL (PRINIVIL,ZESTR IL) 5 mg tablet TAKE 1 TABLET BY MOUTH DAILY 90 tablet 08/22/2024 Active atorvastatin (LIPITOR) 80 mg tablet TAKE 1 TABLET BY MOUTH DAILY 90 tablet 08/22/2024 Active pantoprazole (PROTONIX) 40 mg EC tablet TAKE 1 TABLET BY MOUTH DAILY 90 tablet 08/22/2024 Active methIMAzole (TAPAZOLE) 5 mg tablet TAKE 2 TABLETS(10 MG) BY MOUTH DAILY 60 tablet 5 09/17/2024 Active guaiFENesin (MUCINEX) 600 mg 12 hr tablet Take 2 tablets (1,200 mg total) by mouth 2 (two) times a day. 10/02/2022 Active dextromethorpha n 15 mg/5 mL syrup Take by mouth 2 (two) times a day if needed for cough. Delsum Liquid Active Active Problems Problem Noted Date Diagnosed Date Hyperlipidemia 03/26/2024 Subclinical hyperthyroidism 09/26/2023 Type 2 myocardial infarction 12/05/2022 Overview (07/22/2024): Last Assessment & Plan: This patient did appear to have a non-STEMI. She had normal coronary arteries. She did have wall motion abnormalities. Its not clear if this could have been a form of a stress-induced cardiomyopathy. She is scheduled for an echocardiogram to see what this demonstrates. 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 Posterior l. Parietal ? Microvacular ischemic change. +sinusitis Seropositive rheumatoid arthritis 02/28/2012 Overview (07/22/2024): Onset ~ 2009, mostly hands. RF, CCP Ab, CACHORRO all positive. Negative anti DNA, anti Sm Ab. methotrexate started Aug 2012 - stopped 08/04 when she developed seizure, blood in CSF, leptomeningeal inflammation on MRI scan Hydroxychloroquine started 2016 - changed to methotrexate (restarted) 06/06 Last Assessment & Plan: Lab at end of May and end july Overweight 08/28/2007 Tobacco use disorder 08/28/2007 Overview (07/22/2024): Tried Chantix - bad dreams. Nicotine patches - could not tolerate Last Assessment & Plan: She continues to smoke cigarettes I told her she needs to stop smoking as this could lead to lung disease, which she has, lung cancer strokes peripheral arterial disease. Encounters Date Type Department Care Team Description 10/17/2024 11:15 AM EST Office Visit Adult Medicine - [address] [phone] Glenys Saunders PA Coronary artery disease, unspecified vessel or lesion type, unspecified whether angina present, unspecified whether enterprise or transplanted heart (Primary Dx); Screening mammogram for breast cancer; Hair loss; Subclinical hyperthyroidism; Seropositive rheumatoid arthritis (CMS/HCC); Osteoporosis, unspecified osteoporosis type, unspecified pathological fracture presence; Tobacco use disorder; Rheumatic arteritis; Thyroid nodule; Hyperlipidemia, unspecified hyperlipidemia type; Pulmonary emphysema, unspecified emphysema type (CMS/HCC); Type 2 myocardial infarction (CMS/HCC) 09/24/2024 8:55 AM EST - 09/24/2024 11:59 PM EST Hospital Encounter Radiology Department - [address] [phone] Thyroid nodule Discharge Disposition: Home or Self Care 09/20/2024 2:00 PM EST Office Visit Endocrinology - [address] [phone] Nadya Rico PA Subclinical hyperthyroidism (Primary Dx); Thyroid nodule from Last 3 Months Immunizations Name Administration Dates Next Due Influenza Quadravalent, 0.5m l (Fluzone High-dose) 65yo and older 05/06/2023,06/03/2022,04/25/2021 Influenza trivalent, 0.5mL ( Fluzone High-dose) 65yo and older 06/14/2019,05/04/2018,06/09/2017 Influenza trivalent, with pr eservative (Fluzone; Afluria) 6mo and older 07/01/2016,07/07/2015,07/15/2014,08/11 Influenza, Unspecified 08/26/2023,05/21/2020 Pneumococcal conjugate 13 va lent (Prevnar 13, PCV13) 2mo and older 07/01/2016 Pneumococcal polysaccharide 23 valent (Pneumovax 23) 2yo and older 07/15/2014 RSV, bivalent, protein subun it RSVpreF, 0.5mL, Preservative Free (Arexvy) 60yo and older 05/06/2023 Td Tetanus diptheria (Tdvax) 7yo and older 08/28/2007 Tdap Tetanus diptheria acell ular pertussis (Boostrix; Adacel) 7yo and older 10/17/2024,07/15/2014 Zoster recombinant (Shingrix ) 19yo and older 04/09/2021,01/30/2021 Surgical History Surgery Date Site/Laterality Comments TONSILLECTOMY age 3 PROCEDURE: HISTORICAL TONSILLECTOMY Medical History Medical History Date Comments Tobacco use disorder 08/28/2007 DX:Tobacco use disorder Pain in joint, multiple sites 12/24/2009 DX :Pain in joint, multiple sites Rheumatoid arthritis(714.0) 02/28/2012 DX:R heumatoid arthritis(714.0) Leptomeningeal disease 07/27/2015 DX:Leptom eningeal disease Headache disorder 09/16/2015 DX:Headache di sorder Exertional dyspnea 09/16/2015 DX:Exertional dyspnea COPD (chronic obstructive pu lmonary disease) ([facility]/HCC) 10/09/2015 DX:COPD (chronic obstructive pulmonary disease) ([facility]) Family History Medical History Relation Name Comments Heart attack Brother Diabetes Daughter Other: MVA Father Hyperlipidemia Mother Arthritis Sister Relation Name Status Comments Brother Daughter Alive DM I Father Pedestrian MVA Maternal Grandfather UK Maternal Grandmother UK Mother Heart problems; cholesterol related Paternal Grandfather UK Paternal Grandmother UK Sister Alive Son Alive healthy Social History Tobacco Use Types Packs/Day Years Used Date Smoking Tobacco: Every Day Cigarettes Smokeless Tobacco: Never Tobacco Cessation:Ready to Q uit: Not Asked; Counseling Given: Yes Alcohol Use Standard Drinks/Week Comments Yes 0 (1 standard drink = 0.6 oz pur e alcohol) Comments No Sex and Gender Information Value Date Recorded Sex Assigned at Not on file Legal Sex Female 5:12 PM EST Gender Identity Not on file Sexual Orientation Not on file Obstetrics History Last Filed Vital Signs Vital Sign Reading Time Taken Comments Blood Pressure 134/72 10/17/2024 11:24 AM EST Pulse 103 10/17/2024 11:24 AM EST Temperature 36.6 ??C (97.8 ??F) 10/17/2024 11:[address] Respiratory Rate - - Oxygen Saturation 95% 09/20/2024 2:14 PM EST Inhaled Oxygen Concentration - - Weight 58.5 kg (129 lb) 10/17/2024 11:24 AM EST Height 162.6 cm (5' 4 ) 09/20/2024 2:14 PM EST Body Mass Index 22.14 09/20/2024 2:14 PM EST Plan of Treatment Upcoming Encounters Date Type Department Care Team (Late st Contact Info) Description 12/20/2024 9:30 AM EDT Office Visit Endocrinology - [address] [phone] Nadya Rico PA [address] [place] [address] 02/19/2025 8:20 AM EDT Office Visit [facility] [address] [facility] [address] [place] [phone] Charlene Gardner MD [address] [facility] [address] [place] [address] 04/16/2025 11:15 AM EDT Office Visit Adult Medicine - [place] [address] [place] [phone] Glenys Saunders PA [address] [place] [address] 05/09/2025 9:00 AM EDT Appointment Radiology Department - [address] [phone] Health Maintenance Due Date Last Done Comments Pneumococcal Vaccine: 50+ Years (3 of 3 - PPSV23, PCV20 or PCV21) 07/15/2019 07/01/2016, 07/15/2014 Osteoporosis Screening (Bone Density Screening) 07/20/2022 Social Influencers of Health Screening 07/20/2022 Depression Screening 11/20/2024 11/21/2023 Falls Risk Assessment 11/20/2024 11/21/2023 Medicare Annual Wellness Visit 11/20/2024 11/21/2023 Hypertension/CHF/CAD Annual BMP Blood Test 10/17/2025 10/17/2024, 03/26/2024, 03/26/2024, Additional history exists Colorectal Cancer Screening: FIT-DNA (Cologuard) 04/14/2027 04/14/2024 Cholesterol Screening (Lipid Panel) 03/26/2029 03/26/2024, 03/26/2024 DTaP,Tdap,and Td Vaccines (4 - Td or Tdap) 10/17/2034 10/17/2024, 07/15/2014, 08/28/2007 Hepatitis C Screening Completed 09/05/2012 Zoster Vaccines Completed 04/09/2021, 01/30/2021 RSV Immunization Adult Patients Completed 05/06/2023 COVID-19 Vaccine Completed 07/30/2024, 01/2024, 07/02/2022, Additional history exists Influenza Vaccine Completed 07/30/2024, , 05/06/2023, Additional history exists HIB Vaccines Aged Out No longer eligi ble based on patient's age to complete this topic HPV Vaccines Aged Out No longer eligi ble based on patient's age to complete this topic Hepatitis A Vaccines Aged Out No long er eligible based on patient's age to complete this topic Hepatitis B Vaccines Aged Out No long er eligible based on patient's age to complete this topic IPV Vaccines Aged Out No longer eligi ble based on patient's age to complete this topic MMR Vaccines Aged Out No longer eligi ble based on patient's age to complete this topic Meningococcal ACWY Vaccine Aged Out N o longer eligible based on patient's age to complete this topic Meningococcal B Vacine Aged Out No lo nger eligible based on patient's age to complete this topic RSV Immunization Patients Under 20 months Aged Out No longer eligible based on patient's age to complete this topic Varicella Vaccines Aged Out No longer eligible based on patient's age to complete this topic Procedures Procedure Name Priority Date/Time Associated Diagnosis Comments CBC WITH AUTO DIFFERENTIAL Routine 10/17/2024 12:09 PM EST Coronary artery disease, unspecified vessel or lesion type, unspecified whether angina present, unspecified whether enterprise or transplanted heart VITAMIN D 25 HYDROXY Routine 10/17/2024 12:09 PM EST Osteoporosis, unspecified osteoporosis type, unspecified pathological fracture presence CBC AND DIFFERENTIAL Routine 10/17/2024 12:09 PM EST Coronary artery disease, unspecified vessel or lesion type, unspecified whether angina present, unspecified whether enterprise or transplanted heart COMPREHENSIVE METABOLIC PANEL Routine 10/17/2024 12:09 PM EST Coronary artery disease, unspecified vessel or lesion type, unspecified whether angina present, unspecified whether enterprise or transplanted heart FINE NEEDLE ASPIRATION STAT 09/24/2024 9:24 AM EST Thyroid nodule US GUIDED FINE NDL ASP 1ST LESION Routine 09/24/2024 9:23 AM EST Thyroid nodule THYROID STIMULATING HORMONE WITH REFLEX TO FREE T4 AND FREE T3 Routine 09/20/2024 3:02 PM EST Subclinical hyperthyroidism LIPID PANEL Routine 03/26/2024 HM DEPRESSION SCREENING Routine 11/21/2023 FALLS RISK ASSESSMENT Routine 11/21/2023 HEPATITIS C SCREENING Routine 09/05/2012 from Last 3 Months or Most Recently Relevant to Health Maintenance Results * (ABNORMAL) CBC auto differential (10/17/2024 12:09 PM EST) WBC 10.6 4.8 - 10.8 K/mcL LAB HEMETOLOGY METHOD 10/17/2024 3:02 PM [facility] RBC 4.40 3.80 - 4.80 M/mcL LAB HEMETOLOGY METHOD 10/17/2024 3:02 PM [facility] Hemoglobin 13.7 11.5 - 16.0 g/dL LAB HEMETOLOGY METHOD 10/17/2024 3:02 PM [facility] Hematocrit 43.9 35.0 - 47.0 % LAB HEMETOLOGY METHOD 10/17/2024 3:02 PM [facility] MCV 100.5(H) 79.0 - 98.0 FL LAB HEMETOLOGY METHOD 10/17/2024 3:02 PM [facility] MCH 31.4 27.0 - 32.0 pcg LAB HEMETOLOGY METHOD 10/17/2024 3:02 PM [facility] MCHC 31.2(L) 32.0 - 37.0 g/dL LAB HEMETOLOGY METHOD 10/17/2024 3:02 PM [facility] RDW 13.7 11.0 - 15.0 % LAB HEMETOLOGY METHOD 10/17/2024 3:02 PM [facility] Platelets 300 130 - 400 K/mcL LAB HEMETOLOGY METHOD 10/17/2024 3:02 PM [facility] MPV 10.4 7.0 - 11.0 FL LAB HEMETOLOGY METHOD 10/17/2024 3:02 PM [facility] NRBC 0.0 <1.0 % LAB HEMETOLOGY METHOD 10/17/2024 3:02 PM [facility] NRBC Absolute 0.00 <0.10 K/mcL LAB HEMETOLOGY METHOD 10/17/2024 3:02 PM [facility] Neutrophils Relative 70.3 % LAB HEMETOLOGY METHOD 10/17/2024 3:02 PM [facility] Lymphocytes Relative 18.1 % LAB HEMETOLOGY METHOD 10/17/2024 3:02 PM [facility] Monocytes Relative 9.5 % LAB HEMETOLOGY METHOD 10/17/2024 3:02 PM [facility] Eosinophils Relative 1.2 % LAB HEMETOLOGY METHOD 10/17/2024 3:02 PM [facility] Basophils Relative 0.6 % LAB HEMETOLOGY METHOD 10/17/2024 3:02 PM [facility] Immature Granulocytes Relative 0.3 % LAB HEMETOLOGY METHOD 10/17/2024 3:02 PM [facility] Neutrophils Absolute 7.44(H) 1.50 - 7.00 K/mcL LAB HEMETOLOGY METHOD 10/17/2024 3:02 PM [facility] Lymphocytes Absolute 1.92 1.00 - 5.00 K/mcL LAB HEMETOLOGY METHOD 10/17/2024 3:02 PM [facility] Monocytes Absolute 1.00 0.20 - 1.00 K/mcL LAB HEMETOLOGY METHOD 10/17/2024 3:02 PM [facility] Eosinophils Absolute 0.13 0.00 - 0.50 K/mcL LAB HEMETOLOGY METHOD 10/17/2024 3:02 PM [facility] Basophils Absolute 0.06 0.00 - 0.20 K/mcL LAB HEMETOLOGY METHOD 10/17/2024 3:02 PM EST [facility] Immature Granulocytes Absolute 0.03 0.00 - 0.03 K/mcL LAB HEMETOLOGY METHOD 10/17/2024 3:02 PM EST [facility] Blood Venous blood specimen / Unknown Venipuncture / Unknown 10/17/2024 12:09 PM EST 10/17/2024 12:09 PM EST Glenys GERMAIN LAB BLOOD ORDERABLES Final Result Performing Organization Address [facility]/ZIP Co de Phone Number [facility] [address] [place] [address], [place] [phone] * Vitamin D 25 hydroxy (10/17/2024 12:09 PM EST) Pathologist [facility] Vit D, 25-Hydroxy 56.0 30.0 - 80.0 ng/mL LAB CHEMISTRY METHOD 10/17/2024 5:31 PM [facility] Blood Venous blood specimen / Unknown Venipuncture / Unknown 10/17/2024 12:09 PM EST 10/17/2024 12:09 PM EST Glenys GERMAIN LAB BLOOD ORDERABLES Final Result Performing Organization Address [facility]/ZIP Co de Phone Number [facility] [address] [place] [address], [place] [phone] * (ABNORMAL) Comprehensive metabolic panel (10/17/2024 12:09 PM EST) [facility] Sodium 141 133 - 145 mmol/L LAB CHEMISTRY METHOD 10/17/2024 4:37 PM EST [facility] Potassium 4.6 3.5 - 5.5 mmol/L LAB CHEMISTRY METHOD 10/17/2024 4:37 PM [facility] Chloride 104 96 - 110 mmol/L LAB CHEMISTRY METHOD 10/17/2024 4:37 PM EST [facility] CO2 29 21 - 32 mmol/L LAB CHEMISTRY METHOD 10/17/2024 4:37 PM [facility] Anion Gap 8 3 - 11 LAB CHEMISTRY METHOD 10/17/2024 4:37 PM [facility] Glucose 93 70 - 100 mg/dL LAB CHEMISTRY METHOD 10/17/2024 4:37 PM [facility] BUN 13 5 - 25 mg/dL LAB CHEMISTRY METHOD 10/17/2024 4:37 PM [facility] Creatinine 0.76 0.50 - 1.10 mg/dL LAB CHEMISTRY METHOD 10/17/2024 4:37 PM [facility] eGFR 82 >=60 mL/min/1. 73m2 LAB CHEMISTRY METHOD 10/17/2024 4:37 PM [facility] Comment:Calculation based on the??Chronic Kidney Disease Epidemiology Collaboration (CKD-EPI) equation refit??without adjustment for race. BUN/Creatinine Ratio 17.1 LAB CHEMISTRY METHOD 10/17/2024 4:37 PM [facility] Calcium 9.5 8.5 - 10.5 mg/dL LAB CHEMISTRY METHOD 10/17/2024 4:37 PM [facility] AST (SGOT) 20 10 - 42 unit/L LAB CHEMISTRY METHOD 10/17/2024 4:37 PM [facility] ALT (SGPT) 29 10 - 60 unit/L LAB CHEMISTRY METHOD 10/17/2024 4:37 PM [facility] Alkaline Phosphatase 155(H) 42 - 121 unit/L LAB CHEMISTRY METHOD 10/17/2024 4:37 PM [facility] Total Protein 7.1 6.0 - 8.0 g/dL LAB CHEMISTRY METHOD 10/17/2024 4:37 PM [facility] Albumin 3.8 3.2 - 5.0 g/dL LAB CHEMISTRY METHOD 10/17/2024 4:37 PM [facility] Total Bilirubin 0.6 0.0 - 1.4 mg/dL LAB CHEMISTRY METHOD 10/17/2024 4:37 PM [facility] Blood Venous blood specimen / Unknown Venipuncture / Unknown 10/17/2024 12:09 PM EST 10/17/2024 12:09 PM EST us Glenys GERMAIN LAB BLOOD ORDERABLES Final Result [facility] [address] [place] [address], [place] [phone] * Fine needle aspiration (09/24/2024 9:24 AM EST) Final Diagnosis A. Thyroid, Left Upper Pole, (ThinPrep, direct smears): Benign ([place] Category II). Consistent with follicular nodular disease 09/25/2024 12:55 PM [facility] Specimen A Adequacy Satisfactory for evaluation 09/25/2024 12:55 PM [facility] Gross Description A. Thyroid, Left, LT UP THYROID: Received in Cytolyt 30 ml of clear fluid; 1 ThinPrep,2 pap stained direct smears. 09/25/2024 12:55 PM [facility] Disclaimer Unless otherwise specified, all tissue is 10% NB formalin fixed and paraffin embedded. Technical cytopathology services provided by [facility], at [address] [place] [id number] (CLIA # [id number]/Jil Johnson MD, Clinical Massage Therapist.) 09/25/2024 12:55 PM [facility] Fine Needle Aspirate Structure of left lobe of thyroid gland / Unknown 09/24/2024 9:24 AM EST 09/25/2024 8:15 AM EST us Nancy Bejarano MD LAB PATHOLOGY ORDERABLES Final Result [facility] [address] [place] [address], * US Guided Fine Ndl Asp 1st Lesion (09/24/2024 9:23 AM EST) Anatomical Region Laterality Modality Ultrasound 09/25/2024 1:56 PM EST Narrative 09/25/2024 1:58 PM EST Ultrasound-guided biopsy of the nodule in the upper pole of the left thyroid lobe. Written informed consent was obtained. Skin overlying the lesion was prepped with Betadine and sprayed with lidocaine spray. FNA was performed under direct ultrasound guidance utilizing 3 passes of separate 27-gauge needles. Material was placed into the CytoLyt and over the slides. Patient tolerated procedure well without immediate complications and was released in satisfactory condition with postprocedure instructions. She was advised to follow with her provider when results become available. Final Diagnosis A. Thyroid, Left Upper Pole, (ThinPrep, direct smears): Benign ([place] Category II). Consistent with follicular nodular disease ? at 1255 -------- FINAL REPORT -------- Dictated By: Nancy Bejarano Dictated Date: 09/25/2024 13:56 ET Assigned Physician: Nancy Bejarano Reviewed and Electronically Signed By: Nancy Bejarano Signed Date: 09/25/2024 13:58 ET Workstation ID: [id number] Transcribed By: Self Edit Transcribed Date: 09/25/2024 13:56 ET Procedure Note Nancy Bejarano MD - 09/25/2024 Ultrasound-guided biopsy of the nodule in the upper pole of the leftthyroid lobe. Written informed consent was obtained. Skin overlying the lesion wasprepped with Betadine and sprayed with lidocaine spray. FNA was performed under direct ultrasound guidance utilizing 3 passes ofseparate 27-gauge needles. Material was placed into the CytoLyt and overthe slides. Patient tolerated procedure well without immediate complications and wasreleased in satisfactory condition with postprocedure instructions. Shewas advised to follow with her provider when results become available. Final Diagnosis A. Thyroid, Left Upper Pole, (ThinPrep, direct smears): Benign ([place] Category II). Consistent with follicular nodular disease ? at 1255 -------- FINAL REPORT -------- Dictated By: Nancy Bejarano Dictated Date: 09/25/2024 13:56 ET Assigned Physician: Nancy Bejarano Reviewed and Electronically Signed By: Nancy Bejarano Signed Date: 09/25/2024 13:58 ET Workstation ID: [id number] Transcribed By: Self Edit Transcribed Date: 09/25/2024 13:56 ET us Nadya GERMAIN IMG US PROCEDURES Final Res ult * Thyroid stimulating hormone with reflex to free t4 and free t3 (09/20/2024 3:02 PM EST) [facility] TSH 2.10 0.40 - 4.00 mcIU/mL LAB CHEMISTRY METHOD 09/20/2024 7:23 PM EST [facility] Blood Venous blood specimen / Unknown Venipuncture / Unknown 09/20/2024 3:02 PM EST 09/20/2024 3:02 PM EST Nadya GERMAIN LAB BLOOD ORDERABLES Final Result [facility] [address] [place] [address], [place] [phone] * Lipid panel (03/26/2024) [facility] LDL/HDL Ratio 2 0 - 4 Triglycerides 59 0 - 150 mg/dL Cholesterol 133 0 - 200 mg/dL HDL 62 >=40 mg/dL LDL Cholesterol 60 0 - 100 mg/dL Blood Venous blood specimen / Unknown Historical Provider LAB BLOOD ORDERABLES Demetria l Result * Falls Risk Assessment (11/21/2023) Falls Risk Assessment abstracted Historical Provider MD HEALTH MAINTENANCE Final Result * Depression Screening (11/21/2023) Depression Screening abstracted Historical Provider HEALTH MAINTENANCE Final Result * Hepatitis C Screening (09/05/2012) Hepatitis C Screening abstracted Historical Provider MD HEALTH MAINTENANCE Final Result from Last 3 Months or Most Recently Relevant to Health Maintenance Insurance MEDICARE [facility] [address] [place] [address] Advance Directives Documents on File Type Date Recorded Patient Five Piece Expansion Maker Hand Expl anation Health Care Decision (hx) 09/30/2022 AD PEREZ DIRECTIVE Health Care Decision (hx) 09/30/2022 AD PEREZ DIRECTIVE Care Teams Carbide Operator Relationship Specialty Start Date End Date Corina Mercedes MD [address] [place] [id number] PCP - General Internal Medicine 01/05/21
[2024-11-20 14:12] LABS: MANUAL DIFF FLAG NO
[2024-11-20 14:24] LABS: Basophils Absolute Auto 0.1 X10*3/uL (0.0-0.2); Basophils Percent Auto 0.8 % (0-2); Eosinophils Absolute Auto 0.1 X10*3/uL (0.0-0.4); Eosinophils Percent Auto 1.6 % (0-4); Hematocrit 42.6 % (37.0-47.0); Hemoglobin 13.8 g/dl (12.0-16.0); Imm Gran Abs Auto 0.04 X10*3/uL (0.00-0.03); Imm Gran Pct Auto 0.5 % (0.0-0.4); Lymphocytes Percent Auto 23.6 % (20-40); Mean Corpuscular HGB Conc 32.4 g/dl (31.0-35.0); Mean Corpuscular Hemoglobin 31.4 pg (27.0-33.0); Mean Corpuscular Volume 96.8 fL (80.0-98.0); Mean Platelet Volume 10.1 fL (9.4-12.3); Monocytes Absolute Auto 0.6 X10*3/uL (0.1-1.2); Monocytes Percent Auto 6.6 % (2-11); Neutrophils Absolute Auto 5.6 x10*3/uL (2.0-8.3); Neutrophils Percent Auto 66.9 % (45-73); Platelet Count 290 X10*3/uL (160-400); Red Cell Distribution Width 13.6 % (11.0-16.0); White Blood Count 8.4 X10*3/uL (4.8-10.8)
[2024-11-20 14:45] LABS: Alanine Aminotransferase 18 U/L (0-31); Albumin Level 4.1 g/dL (3.5-5.0); Alkaline Phosphatase 133 U/L (39-117); Anion Gap 11 (12-20); Aspartate Amino Transferase 26 U/L (5-31); Blood Urea Nitrogen 16 mg/dL (9-16); C Reactive Protein 0.43 mg/dL (< or = 0.50); Calcium 9.7 mg/dL (8.4-10.2); Carbon Dioxide 29 mmol/L (22-29); Chloride 104 mmol/L (96-108); Estimated Glomerular Filt Rate > 60; Glucose Random 130 mg/dL (60-115); Potassium 4.4 mmol/L (3.3-5.1); Sodium 140 mmol/L (135-145); Total Protein 7.1 g/dL (6.5-8.0)
[2024-11-20 15:20] LABS: Erythrocyte Sedimentation Rate 14 MM/HR (0-20)
== END 2024-11-20 10:47 | disposition home or self-care (01) ==
LOC: HO.WFDLDS 10:46
PROVIDERS: Referring Provider Nurse Practitioner Family; Visit Provider Student in an Organized Health Care Education/Training Program
DX: M05.79 Rheumatoid arthritis with rheumatoid factor of multiple sites without organ or systems involvement (principal); Z79.631 Long term (current) use of antimetabolite agent
CPT/HCPCS: 36415; 80053; 85025; 85652; 86140

== ENCOUNTER 2024-11-22 11:06 | Outpatient (AMB) | payer MEDICARE, OTHER, SELFPAY ==
--- NOTE | 2024-11-22 11:11 | A.OFFVIS_ITS ---
Vital Signs 11/22/24 11:16 Height 5 ft 3 in Weight 127 lb 10.362 oz BMI 22.6 BP 140/80 H Blood Pressure Location Lt brachial Position Sitting Pulse 107 H Pulse Source Pulse Oximeter Pulse Oximetry (%) 97 Oxygen Delivery Method Room Air Intake Visit Reasons: RA Intake Note: Patient presents today for RA. Allergies No Known Allergies Allergy (Verified 11/22/24 11:16) Medication List - Last Reconciled 11/22/24 by Ninoska Vo MD albuterol sulfate 90 mcg/actuation (Ventolin HFA) 2 puffs inhalation Q6H atorvastatin 80 mg PO DAILY cholecalciferol (vitamin D3) 50 mcg PO DAILY denosumab (Prolia) 60 mg subcut [id number] rporhcnvrzt-bpqanpogt-xxrggier 200-62.5-25 mcg (Trelegy Ellipta) 1 ea inhalation DAILY folic acid 0.8 mg PO DAILY lisinopril 5 mg PO DAILY methimazole mg PO methotrexate sodium 15 mg (6 x 2.5 mg) PO QWEEK vvbcfxpe-yrwv-GM-calcium-mins 9 mg iron-400 mcg (Thera M Plus (ferrous fumarate)) 1 tab PO DAILY pantoprazole 40 mg PO DAILY thiamine HCl (vitamin B1) (Vitamin B-1) 100 mg PO DAILY HPI Comments Details: Patient is a 74-year-old female current everyday smoker with history of hyperthyroidism, hypertension, hyperlipidemia, GERD, seropositive rheumatoid arthritis and osteoporosis here today for follow up Interval History: Patient last seen 07/22/[address] Mistry. At that time she was following up for her rheumatoid arthritis and her osteoporosis. She remained on methotrexate 15 mg weekly and folic acid 0.8 mg daily. She was doing well with respect to her rheumatoid arthritis. She had repeat bone density done after that visit which showed worsening of her osteoporosis especially in her spine Today, Patient is at visit with her Continues to have minimal to no joint pain. RA in remission No falls or fractures since the last visit Rheumatologic History: Seropositive rheumatoid arthritis Onset ~ 2009, mostly hands. RF, CCP Ab, CACHORRO all positive. Negative anti DNA, anti Sm Ab. methotrexate started Aug 2012 - stopped 08/04 when she developed seizure, blood in CSF, leptomeningeal inflammation on MRI scan Hydroxychloroquine started 2016 - changed to methotrexate (restarted) 06/06 Osteoporosis Right humeral fracture, 06/2023November 09 T-scores at [facility]: LS spine-3.4, femoral neck,-2.2, total femur -2.0 Apparently declined treatment for osteoporosis at [facility]. 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 Review of Systems Const Details: Review of Systems Constitutional: Denies fever, chills, weight loss ENT: Denies vision changes, eye pain or eye redness, dental caries, dry mouth GI: Denies nausea, vomiting, diarrhea, abdominal pain, change in BM Pulm: Denies SOB, [place], hemoptysis, wheezing Cards: Denies chest pain, palpitations Skin: Denies Raynaud's, rash, nail changes, photosensitivity, STRAIGHT KNIFE CUTTER MACHINE: Denies headaches, weakness, paresthesias, recurrent falls MSK: as per HPI All other systems reviewed and are unremarkable except noted above Physical Exam Vital Signs: Last Vital Signs Pulse 107 H 11/22/24 11:16 BP 140/80 H 11/22/24 11:16 Pulse Ox 97 11/22/24 11:16 Oxygen Delivery Method Room Air 11/22/24 11:16 BMI result Body Mass Index 22.6 Vital signs reviewed Physical Examination CONSTITUITIONAL Patient alert and cooperative. Well appearing and in no apparent painful distress HEENT Conjunctiva and sclera clear. ?Pupils equal round and reactive to light. ?No lymphadenopathy. ? CHEST/RESPIRATORY SYSTEM Normal respiratory effort and able to speak in complete sentences. ?Clear to auscultation bilaterally. ?No crackles, rales, rhonchi, wheezes heard. CARDIAC SYSTEM Regular rate and rhythm. ?S1 and S2 heard no murmurs. ?Radial pulses intact bilaterally MSK Hands: ?Good after school counselor strength bilaterally. No deformities noted. ?No synovitis noted to the MCPs, PIPs or DIPs. ?No tenderness to palpation of these joints. Heberden's nodes noted Wrists: ?Full range of motion at the wrists without pain. ?No tenderness to palpation or synovitis noted to the wrists. Elbows: Full range of motion without pain. No tenderness, weakness, swelling, increased warmth or erythema. Shoulders: Full range of motion without pain. No tenderness, weakness, swelling, increased warmth or erythema. Hips: Full range of motion without pain. Hip bursa: No tenderness to palpation Knees: ?Full range of motion. ?No tenderness, swelling, increased warmth or erythema.?No effusion or crepitations Ankles: Full range of motion. ?No tenderness, swelling, increased warmth or erythema.? Feet: ?Negative squeeze test. ?No tenderness to palpation or swelling of the MTPs. Tender points:?No tenderness to palpation of the bilateral trapezius, supraspinatus, greater trochanters, anterior costochondral junctions, bilateral gluteal areas, bilateral suboccipital muscle insertions SKIN Skin intact without rashes. Results Reviewed Results Reviewed: Laboratory Tests 07/16/24 11/20/24 11/20/24 11:48 10:18 10:48 WBC 8.4 RBC 4.40 Hgb 13.8 Hct 42.6 Plt Count 290 ESR 14 Sodium 140 Potassium 4.4 Chloride 104 Carbon Dioxide 29 BUN 16 Creatinine 0.70 AST 26 ALT 18 Alkaline Phosphatase 133 H C-Reactive Protein 0.43 Total Protein 7.1 Albumin 4.1 PTH Intact 72.9 DEXA 08/01/24 FINDINGS: LEFT FEMUR, NECK: BMD 0.677 g/cm2, Z-score -0.6, T-score -2.6, osteoporosis. LEFT FEMUR, TOTAL: BMD 0.754 g/cm2, Z-score -0.2, T-score -2.0, osteopenia. AP SPINE L1-L4: BMD 0.751 g/cm2, Z-score -1.7, T-score -3.6, osteoporosis. Assessment & Plan Assessment & Plan (1) Rheumatoid arthritis: Comment: Onset ~ 2009, mostly hands. RF, CCP Ab, CACHORRO all positive. Negative anti DNA, anti Sm Ab. methotrexate started Aug 2012 - stopped 08/04 when she developed seizure, blood in CSF, leptomeningeal inflammation on MRI scan Hydroxychloroquine started 2016 - changed to methotrexate (restarted) 06/06 Code(s): M06.9 - Rheumatoid arthritis, unspecified Category: Medical Qualifiers: Rheumatoid arthritis location: multiple sites Rheumatoid factor presence: with rheumatoid factor Qualified Code(s): M05.79 - Rheumatoid arthritis with rheumatoid factor of multiple sites without organ or systems involvement Plan: #Seropositive RA Patient is a 74-year-old female with seropositive rheumatoid arthritis currently in remission on methotrexate and folic acid Plan - Continue methotrexate 15mg weekly - Continue folic acid 1mg - RTC 5 months - Labs before visit: CBC, CMP, ESR, CRP, hepatitis panel, T spot (2) Osteoporosis: Comment: Right humeral fracture, 06/2023 DEXA 04/2022: AP Spine -3.4, Left femur neck -2.2, Left femur total -2.0 Declined treatment at [facility] DEXA 07/2024: AP Spine -3.6, Left femur neck -2.6, Left femur total -2.0 Code(s): M81.0 - Age-related osteoporosis without current pathological fracture Category: Medical Qualifiers: Osteoporosis type: age-related Presence of current pathological fracture: with current pathological fracture Encounter type: subsequent e ncounter Fracture healing: with routine healing Qualified Code(s): M80.00XD - Age-related osteoporosis with current pathological fracture, unspecified site, subsequent encounter for fracture with routine healing Plan: #Osteoporosis Patient is a 74-year-old female with severe osteoporosis highest T-score -3.6 of the AP spine and history of fragility fracture of the right humerus. Discussed with patient and that she needs bone building agents for the 1st 3 year due to the severity of her osteoporosis. We will try to get if Evenity which is a once a month injection however if her insurance declines if we will need to do the daily injections with Forteo. Patient is on board. 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 Limit alcohol and avoid Bactrim ? Monitoring: ?CBC, BMP, LFTs every 3-4 months and hepatitis serologies as needed Plan I spent 32 minutes reviewing the record and labs, taking a history, examining the patient, discussing the treatment plan, ordering diagnostic work up and documenting in the medical record Orders: Orders C Reactive Protein 5 Months M05.79 - Rheumatoid arthritis with rheumatoid factor of multiple sites without organ or systems involvement Erythrocyte Sedimentation Rate 5 Months M05.79 - Rheumatoid arthritis with rheumatoid factor of multiple sites without organ or systems involvement T Spot TB 5 Months M05.79 - Rheumatoid arthritis with rheumatoid factor of multiple sites without organ or systems involvement Vitamin D 25-OH Total 5 Months E55.9 - Vitamin D deficiency, unspecified Complete Blood Count Auto Diff 5 Months M05.79 - Rheumatoid arthritis with rheumatoid factor of multiple sites without organ or systems involvement Comprehensive Met. Panel 5 Months M05.79 - Rheumatoid arthritis with rheumatoid factor of multiple sites without organ or systems involvement Hepatitis A,B,C Profile 5 Months M05.79 - Rheumatoid arthritis with rheumatoid factor of multiple sites without organ or systems involvement Medications: New romosozumab-aqqg (Evenity) To inject in the office 210 mg (2.34 mL) subcut .monthly 2.34 mL 12RF M80.00XD - Age-related osteoporosis with current pathological fracture, unspecified site, subsequent encounter for fracture with routine healing Changed From methotrexate sodium 15 mg (6 x 2.5 mg) PO QWEEK 96 tabs 0RF M06.9 - Rheumatoid arthritis, unspecified To methotrexate sodium 15 mg (6 x 2.5 mg) PO QWEEK 90 days 78 tabs 1RF M06.9 - Rheumatoid arthritis, unspecified From folic acid 0.8 mg PO DAILY M05.79 - Rheumatoid arthritis with rheumatoid factor of multiple sites without organ or systems involvement To folic acid 1 mg PO DAILY 90 tabs 1RF M05.79 - Rheumatoid arthritis with rheumatoid factor of multiple sites without organ or systems involvement From folic acid 1 mg PO DAILY 90 tabs 1RF M05.79 - Rheumatoid arthritis with rheumatoid factor of multiple sites without organ or systems involvement To folic acid 0.8 mg PO DAILY 90 tabs 1RF M05.79 - Rheumatoid arthritis with rheumatoid factor of multiple sites without organ or systems involvement Refilled folic acid 1 mg PO DAILY 90 tabs 1RF M05.79 - Rheumatoid arthritis with rheumatoid factor of multiple sites without organ or systems involvement methotrexate sodium 15 mg (6 x 2.5 mg) PO QWEEK 90 days 78 tabs 1RF M06.9 - Rheumatoid arthritis, unspecified Discontinued denosumab (Prolia) Discontinued Reason: Doctor's Order 60 mg subcut [id number] 1 mL 4RF M80.00XD - Age-related osteoporosis with current pathological fracture, unspecified site, subsequent encounter for fracture with routine healing Coding Level of Care Code Est Pt Level 4 (92835) Complex EM visit Add On G2211 Diagnoses Rheumatoid arthritis involving multiple sites with positive rheumatoid factor M05.79 Rheumatoid arthritis location: multiple sites Rheumatoid factor presence: with rheumatoid factor Age-related osteoporosis with current pathological fracture with routine healing, subsequent encounter M80.00XD Osteoporosis type: age-related Presence of current pathological fracture: with current pathological fracture Encounter type: subsequent encounter Fracture healing: with routine healing detention methotrexate user Z79.631
[2024-11-22 11:16] VITALS: BP 140/80; PULSE 107; O2SAT 97; BMI 22.6
--- OUTSIDE RECORDS SUMMARY | 2024-11-22 12:57 | XMS_ITS | Clinical Summary ---
Author Organization [address] [facility] Address [address] [place] [address] Phone Care Team Providers Care Lace Winder Name Role Phone Corina Mercedes MD Primary [...] AM EST Office Visit Adult Medicine - [address] [phone] Glenys Saunders PA Coronary artery disease, unspecified vessel or lesion type, unspecified whether angina present, unspecified whether chilkoot or transplanted heart (Primary Dx); Screening mammogram for breast cancer; Hair loss; Subclinical hyperthyroidism; Seropositive rheumatoid arthritis (CMS/HCC); Osteoporosis, unspecified osteoporosis type, unspecified pathological fracture presence; Tobacco use disorder; Rheumatic arteritis; Thyroid nodule; Hyperlipidemia, unspecified hyperlipidemia type; Pulmonary emphysema, unspecified emphysema type (CMS/HCC); Type 2 myocardial infarction (CMS/HCC) 09/24/2024 8:55 AM EST - 09/24/2024 11:59 PM EST Hospital Encounter Radiology Department - [address] [phone] Thyroid nodule Discharge Disposition: Home or Self Care 09/20/2024 2:00 PM EST Office Visit Endocrinology - [address] [phone] Nadya Rico PA Subclinical hyperthyroidism (Primary Dx); [...] dyspnea COPD (chronic obstructive pu lmonary disease) ([facility]/HCC) 10/09/2015 DX:COPD (chronic obstructive pulmonary disease) ([facility]) Family History Medical History Relation [...] 9:30 AM EDT Office Visit Endocrinology - [address] [phone] Nadya Rico PA [address] [place] [address] 02/19/2025 8:20 AM EDT Office Visit [facility] - [facility] [address] [facility] [address] [place] [address] Charlene Gardner MD [address] [facility] [address] [place] [address] 04/16/2025 11:15 AM EDT Office Visit Adult Medicine - [place] [address] [place] [phone] Glenys Saunders PA [address] [place] [address] 05/09/2025 9:00 AM EDT Appointment Radiology Department - [address] [phone] Health Maintenance Due Date Last Done Comments [...] type, unspecified whether angina present, unspecified whether chilkoot or transplanted heart VITAMIN D 25 HYDROXY Routine 10/17/2024 12:09 PM EST Osteoporosis, unspecified osteoporosis type, unspecified pathological fracture presence CBC AND DIFFERENTIAL Routine 10/17/2024 12:09 PM EST Coronary artery disease, unspecified vessel or lesion type, unspecified whether angina present, unspecified whether chilkoot or transplanted heart COMPREHENSIVE METABOLIC PANEL Routine 10/17/2024 12:09 PM EST Coronary artery disease, unspecified vessel or lesion type, unspecified whether angina present, unspecified whether chilkoot or transplanted heart FINE NEEDLE ASPIRATION STAT [...] K/mcL LAB HEMETOLOGY METHOD 10/17/2024 3:02 PM [facility] RBC 4.40 3.80 - 4.80 M/mcL LAB HEMETOLOGY METHOD 10/17/2024 3:02 PM [facility] Hemoglobin 13.7 11.5 - 16.0 g/dL LAB HEMETOLOGY METHOD 10/17/2024 3:02 PM [facility] Hematocrit 43.9 35.0 - 47.0 % LAB HEMETOLOGY METHOD 10/17/2024 3:02 PM [facility] MCV 100.5(H) 79.0 - 98.0 FL LAB HEMETOLOGY METHOD 10/17/2024 3:02 PM [facility] MCH 31.4 27.0 - 32.0 pcg LAB HEMETOLOGY METHOD 10/17/2024 3:02 PM [facility] MCHC 31.2(L) 32.0 - 37.0 g/dL LAB HEMETOLOGY METHOD 10/17/2024 3:02 PM [facility] RDW 13.7 11.0 - 15.0 % LAB HEMETOLOGY METHOD 10/17/2024 3:02 PM [facility] Platelets 300 130 - 400 K/mcL LAB HEMETOLOGY METHOD 10/17/2024 3:02 PM [facility] MPV 10.4 7.0 - 11.0 FL LAB HEMETOLOGY METHOD 10/17/2024 3:02 PM [facility] NRBC 0.0 <1.0 % LAB HEMETOLOGY METHOD 10/17/2024 3:02 PM [facility] NRBC Absolute 0.00 <0.10 K/mcL LAB HEMETOLOGY METHOD 10/17/2024 3:02 PM [facility] Neutrophils Relative 70.3 % LAB HEMETOLOGY METHOD 10/17/2024 3:02 PM [facility] Lymphocytes Relative 18.1 % LAB HEMETOLOGY METHOD 10/17/2024 3:02 PM [facility] Monocytes Relative 9.5 % LAB HEMETOLOGY METHOD 10/17/2024 3:02 PM [facility] Eosinophils Relative 1.2 % LAB HEMETOLOGY METHOD 10/17/2024 3:02 PM [facility] Basophils Relative 0.6 % LAB HEMETOLOGY METHOD 10/17/2024 3:02 PM [facility] Immature Granulocytes Relative 0.3 % LAB HEMETOLOGY METHOD 10/17/2024 3:02 PM [facility] Neutrophils Absolute 7.44(H) 1.50 - 7.00 K/mcL LAB HEMETOLOGY METHOD 10/17/2024 3:02 PM [facility] Lymphocytes Absolute 1.92 1.00 - 5.00 K/mcL LAB HEMETOLOGY METHOD 10/17/2024 3:02 PM [facility] Monocytes Absolute 1.00 0.20 - 1.00 K/mcL LAB HEMETOLOGY METHOD 10/17/2024 3:02 PM [facility] Eosinophils Absolute 0.13 0.00 - 0.50 K/mcL LAB HEMETOLOGY METHOD 10/17/2024 3:02 PM [facility] Basophils Absolute 0.06 0.00 - 0.20 K/mcL LAB HEMETOLOGY METHOD 10/17/2024 3:02 PM EST [facility] Immature Granulocytes Absolute 0.03 0.00 - 0.03 K/mcL LAB HEMETOLOGY METHOD 10/17/2024 3:02 PM EST [facility] Blood Venous blood specimen / Unknown Venipuncture / Unknown 10/17/2024 12:09 PM EST 10/17/2024 12:09 PM EST Glenys GERMAIN LAB BLOOD ORDERABLES Final Result Performing Organization Address [facility]/ZIP Co de Phone Number [facility] [address] [place] [address], [place] [phone] * Vitamin D 25 hydroxy (10/17/2024 12:09 PM EST) Pathologist [facility] Vit D, 25-Hydroxy 56.0 30.0 - 80.0 ng/mL LAB CHEMISTRY METHOD 10/17/2024 5:31 PM [facility] Blood Venous blood specimen / Unknown Venipuncture / Unknown 10/17/2024 12:09 PM EST 10/17/2024 12:09 PM EST Glenys GERMAIN LAB BLOOD ORDERABLES Final Result Performing Organization Address [facility]/ZIP Co de Phone Number [facility] [address] [place] [address], [place] [phone] * (ABNORMAL) Comprehensive metabolic panel (10/17/2024 12:09 PM EST) [facility] Sodium 141 133 - 145 mmol/L LAB CHEMISTRY METHOD 10/17/2024 4:37 PM EST [facility] Potassium 4.6 3.5 - 5.5 mmol/L LAB CHEMISTRY METHOD 10/17/2024 4:37 PM [facility] Chloride 104 96 - 110 mmol/L LAB CHEMISTRY METHOD 10/17/2024 4:37 PM EST [facility] CO2 29 21 - 32 mmol/L LAB CHEMISTRY METHOD 10/17/2024 4:37 PM [facility] Anion Gap 8 3 - 11 LAB CHEMISTRY METHOD 10/17/2024 4:37 PM [facility] Glucose 93 70 - 100 mg/dL LAB CHEMISTRY METHOD 10/17/2024 4:37 PM [facility] BUN 13 5 - 25 mg/dL LAB CHEMISTRY METHOD 10/17/2024 4:37 PM [facility] Creatinine 0.76 0.50 - 1.10 mg/dL LAB CHEMISTRY METHOD 10/17/2024 4:37 PM [facility] eGFR 82 >=60 mL/min/1. 73m2 LAB CHEMISTRY METHOD 10/17/2024 4:37 PM [facility] Comment:Calculation based on the??Chronic Kidney Disease Epidemiology Collaboration (CKD-EPI) equation refit??without adjustment for race. BUN/Creatinine Ratio 17.1 LAB CHEMISTRY METHOD 10/17/2024 4:37 PM [facility] Calcium 9.5 8.5 - 10.5 mg/dL LAB CHEMISTRY METHOD 10/17/2024 4:37 PM [facility] AST (SGOT) 20 10 - 42 unit/L LAB CHEMISTRY METHOD 10/17/2024 4:37 PM [facility] ALT (SGPT) 29 10 - 60 unit/L LAB CHEMISTRY METHOD 10/17/2024 4:37 PM [facility] Alkaline Phosphatase 155(H) 42 - 121 unit/L LAB CHEMISTRY METHOD 10/17/2024 4:37 PM [facility] Total Protein 7.1 6.0 - 8.0 g/dL LAB CHEMISTRY METHOD 10/17/2024 4:37 PM [facility] Albumin 3.8 3.2 - 5.0 g/dL LAB CHEMISTRY METHOD 10/17/2024 4:37 PM [facility] Total Bilirubin 0.6 0.0 - 1.4 mg/dL LAB CHEMISTRY METHOD 10/17/2024 4:37 PM [facility] Blood Venous blood specimen / Unknown Venipuncture / Unknown 10/17/2024 12:09 PM EST 10/17/2024 12:09 PM EST us Glenys GERMAIN LAB BLOOD ORDERABLES Final Result [facility] [address] [place] [address], [place] [phone] * Fine needle aspiration (09/24/2024 9:24 AM EST) Final Diagnosis A. Thyroid, Left Upper Pole, (ThinPrep, direct smears): Benign ([place] Category II). Consistent with follicular nodular disease 09/25/2024 12:55 PM [facility] Specimen A Adequacy Satisfactory for evaluation 09/25/2024 12:55 PM [facility] Gross Description A. Thyroid, Left, LT UP THYROID: Received in Cytolyt 30 ml of clear fluid; 1 ThinPrep,2 pap stained direct smears. 09/25/2024 12:55 PM [facility] Disclaimer Unless otherwise specified, all tissue is 10% NB formalin fixed and paraffin embedded. Technical cytopathology services provided by [facility], at [address] [place] [address] (CLIA # [id number]/Jil Johnson MD, Food Order Delivery Runner.) 09/25/2024 12:55 PM [facility] Fine Needle Aspirate Structure of left lobe of thyroid gland / Unknown 09/24/2024 9:24 AM EST 09/25/2024 8:15 AM EST us Nancy Bejarano MD LAB PATHOLOGY ORDERABLES Final Result [facility] [address] [place] [address], * [place] Guided Fine Ndl Asp 1st [...] Left Upper Pole, (ThinPrep, direct smears): Benign ([place] Category II). Consistent with follicular nodular disease ? at 1255 -------- FINAL REPORT -------- Dictated By: Nancy Bejarano Dictated Date: 09/25/2024 13:56 ET Assigned Physician: Nancy Bejarano Reviewed and Electronically Signed By: Nancy Bejarano Signed Date: 09/25/2024 13:58 ET Workstation ID: [id number] Transcribed By: Self Edit Transcribed Date: 09/25/2024 [...] Left Upper Pole, (ThinPrep, direct smears): Benign ([place] Category II). Consistent with follicular nodular disease ? at 1255 -------- FINAL REPORT -------- Dictated By: Nancy Bejarano Dictated Date: 09/25/2024 13:56 ET Assigned Physician: Nancy Bejarano Reviewed and Electronically Signed By: Nancy Bejarano Signed Date: 09/25/2024 13:58 ET Workstation ID: [id number] Transcribed By: Self Edit Transcribed Date: 09/25/2024 13:56 ET us Nadya GERMAIN IMG US PROCEDURES Final Res ult * Thyroid stimulating hormone with reflex to free t4 and free t3 (09/20/2024 3:02 PM EST) [facility] TSH 2.10 0.40 - 4.00 mcIU/mL LAB CHEMISTRY METHOD 09/20/2024 7:23 PM EST [facility] Blood Venous blood specimen / Unknown Venipuncture / Unknown 09/20/2024 3:02 PM EST 09/20/2024 3:02 PM EST Nadya GERMAIN LAB BLOOD ORDERABLES Final Result [facility] [address] [place] [address], [place] [phone] * Lipid panel (03/26/2024) [facility] LDL/HDL Ratio 2 0 - 4 Triglycerides [...] Recently Relevant to Health Maintenance Insurance MEDICARE [facility] [address] [place] [address] Advance Directives Documents on File Type Date Recorded Patient Doorshaker Expl anation Health Care Decision (hx) 09/30/2022 AD PEREZ DIRECTIVE Health Care Decision (hx) 09/30/2022 AD PEREZ DIRECTIVE Care Teams Lace Winder Relationship Specialty Start Date End Date Corina Mercedes MD [address] [place] [id number] PCP - General Internal Medicine 01/05/21
== END 2024-11-22 11:50 | disposition home or self-care (01) ==
LOC: HO.RHE 11:07
PROVIDERS: PCP Internal Medicine; Visit Provider Student in an Organized Health Care Education/Training Program
DX: M05.79 Rheumatoid arthritis with rheumatoid factor of multiple sites without organ or systems involvement (principal); M80.00XD Age-related osteoporosis with current pathological fracture, unspecified site, subsequent encounter for fracture with routine healing; Z79.631 Long term (current) use of antimetabolite agent
CPT/HCPCS: 99214; G2211

== ENCOUNTER → 2024-11-22 11:06 | Outpatient (BNVA) | payer MEDICARE, OTHER, SELFPAY | PROVIDERS: PCP Internal Medicine; Visit Provider Student in an Organized Health Care Education/Training Program | DX: M05.79 Rheumatoid arthritis with rheumatoid factor of multiple sites without organ or systems involvement (principal); M80.00XD Age-related osteoporosis with current pathological fracture, unspecified site, subsequent encounter for fracture with routine healing; Z79.631 Long term (current) use of antimetabolite agent | CPT/HCPCS: 99212 ==

== ENCOUNTER 2025-04-28 10:38 | Outpatient (AMB) | payer BC, SELFPAY ==
--- NOTE | 2025-04-28 10:41 | A.OFFVIS_ITS ---
Vital Signs 04/28/25 10:50 Height 5 ft 3 in Weight 120 lb 5.958 oz BMI 21.3 BP 130/80 Blood Pressure Location Lt brachial Position Sitting Pulse 88 Pulse Source Pulse Oximeter Pulse Oximetry (%) 97 Oxygen Delivery Method Room Air Intake Visit Reasons: RA Intake Note: Patient presents for RA. Allergies No Known Allergies Allergy (Verified 04/28/25 10:48) Medication List - Last Reconciled 04/28/25 by Ninoska Vo MD abaloparatide (Tymlos) 80 mcg (0.04 mL) subcut DAILY albuterol sulfate 90 mcg/actuation (Ventolin HFA) 2 puffs inhalation Q6H atorvastatin 80 mg PO DAILY cholecalciferol (vitamin D3) 50 mcg PO DAILY yuwablvwfeb-jittwqfnb-obiddcgu 200-62.5-25 mcg (Trelegy Ellipta) 1 ea inhalation DAILY folic acid 0.8 mg PO DAILY lisinopril 10 mg PO DAILY methimazole mg PO methotrexate sodium 15 mg (6 x 2.5 mg) PO QWEEK 90 days yjcpnmnr-ocvm-BY-calcium-mins 9 mg iron-400 mcg (Thera M Plus (ferrous fumarate)) 1 tab PO DAILY pantoprazole 40 mg PO DAILY thiamine HCl (vitamin B1) (Vitamin B-1) 100 mg PO DAILY HPI Comments Details: Patient is a 74-year-old female current everyday smoker with history of hyperthyroidism, hypertension, hyperlipidemia, GERD, seropositive rheumatoid arthritis and osteoporosis here today for follow up Interval History: Patient last seen 11/22/24 with me - On methotrexate 15mg weekly and folic acid - Minimal joint pain - No fractures or falls since the last visit - Started on Forteo for severe osteoporosis Today, - On methotrexate 15mg weekly and folic acid. Forteo 80mcg daily - Did not start the daily injections due to insurance issues, patient lost her job - Doing well with minimal joint pain Rheumatologic History: Seropositive rheumatoid arthritis Onset ~ 2009, mostly hands. RF, CCP Ab, CACHORRO all positive. Negative anti DNA, anti Sm Ab. methotrexate started Aug 2012 - stopped 08/04 when she developed seizure, blood in CSF, leptomeningeal inflammation on MRI scan Hydroxychloroquine started 2016 - changed to methotrexate (restarted) 06/06 Osteoporosis Right humeral fracture, 06/2023November 09 T-scores at [facility]: LS spine-3.4, femoral neck,-2.2, total femur -2.0 Apparently declined treatment for osteoporosis at [facility]. 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 Review of Systems Const Details: Review of Systems Constitutional: Denies fever, chills, weight loss ENT: Denies vision changes, eye pain or eye redness, dental caries, dry mouth GI: Denies nausea, vomiting, diarrhea, abdominal pain, change in BM Pulm: Denies SOB, [place], hemoptysis, wheezing Cards: Denies chest pain, palpitations Skin: Denies Raynaud's, rash, nail changes, photosensitivity, 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 Well appearing and in no apparent painful distress MSK Hands * Right Hand: Able to make a fist. No swelling or tenderness to palpation of the MCPs, PIPs or DIPs. No deformities noted. * Left Hand: Able to make a fist. No swelling or tenderness to palpation of the MCPs, PIPs or DIPs. No deformities noted. Wrists * Right Wrist: Full ROM to flexion and extension. No swelling or TTP * Left Wrist: Full ROM to flexion and extension. No swelling or TTP Elbows * Right Elbow: Full ROM. No swelling or TTP. No TTP of the medial epicondyle. No TTP of the lateral epicondyle * Left Elbow: Full ROM. No swelling or TTP. No TTP of the medial epicondyle. No TTP of the lateral epicondyle Shoulders * Right shoulder: Decreased ROM. No swelling noted. No TTP of the AC joint. No TTP of the subacromial bursa. No TTP of the posterior shoulder * Left shoulder: Full ROM. No swelling noted. No TTP of the AC joint. No TTP of the subacromial bursa. No TTP of the posterior shoulder Knees * Right knee: Full ROM. No swelling noted. No TTP of the knee joint line. No TTP of pes anserine bursa * Left knee: Full ROM. No swelling noted. No TTP of the knee joint line. No TTP of pes anserine bursa. * Crepitations felt bilaterally Ankles * Right ankle: Good ankle dorsiflexion and plantar flexion. No swelling. No TTP of the ankle joint * Left ankle: Good ankle dorsiflexion and plantar flexion. No swelling. No TTP of the ankle joint Feet * Right foot: Negative squeeze test * Left foot: Negative squeeze test Tender points? * No tenderness to palpation of the bilateral trapezius, supraspinatus, anterior costochondral junctions, bilateral suboccipital muscle insertions SKIN No rashes Vital Signs: Last Vital Signs Pulse 88 04/28/25 10:50 BP 130/80 04/28/25 10:50 Pulse Ox 97 04/28/25 10:50 Oxygen Delivery Method Room Air 04/28/25 10:50 BMI result Body Mass Index 21.3 Results Reviewed Results Reviewed: Laboratory Tests 07/16/24 11/20/24 11/20/24 11:48 10:18 10:48 WBC 8.4 RBC 4.40 Hgb 13.8 Hct 42.6 Plt Count 290 ESR 14 Sodium 140 Potassium 4.4 Chloride 104 Carbon Dioxide 29 BUN 16 Creatinine 0.70 AST 26 ALT 18 Alkaline Phosphatase 133 H C-Reactive Protein 0.43 Total Protein 7.1 Albumin 4.1 PTH Intact 72.9 DEXA 08/01/24 FINDINGS: LEFT FEMUR, NECK: BMD 0.677 g/cm2, Z-score -0.6, T-score -2.6, osteoporosis. LEFT FEMUR, TOTAL: BMD 0.754 g/cm2, Z-score -0.2, T-score -2.0, osteopenia. AP SPINE L1-L4: BMD 0.751 g/cm2, Z-score -1.7, T-score -3.6, osteoporosis. Assessment & Plan Assessment & Plan (1) Rheumatoid arthritis: Comment: Onset ~ 2009, mostly hands. RF, CCP Ab, CACHORRO all positive. Negative anti DNA, anti Sm Ab. methotrexate started Aug 2012 - stopped 08/04 when she developed seizure, blood in CSF, leptomeningeal inflammation on MRI scan Hydroxychloroquine started 2016 - changed to methotrexate (restarted) 06/06 Code(s): M06.9 - Rheumatoid arthritis, unspecified Category: Medical Qualifiers: Rheumatoid arthritis location: multiple sites Rheumatoid factor presence: with rheumatoid factor Qualified Code(s): M05.79 - Rheumatoid arthritis with rheumatoid factor of multiple sites without organ or systems involvement Plan: #Seropositive RA Patient is a 74-year-old female with seropositive rheumatoid arthritis currently in remission on methotrexate and folic acid Plan - Continue methotrexate 15mg weekly - Continue folic acid 1mg - RTC 5 months - Labs before visit: CBC, CMP, ESR, CRP, hepatitis panel, T spot (2) Osteoporosis: Comment: Right humeral fracture, 06/2023 DEXA 04/2022: AP Spine -3.4, Left femur neck -2.2, Left femur total -2.0 Declined treatment at [facility] DEXA 07/2024: AP Spine -3.6, Left femur neck -2.6, Left femur total -2.0 Code(s): M81.0 - Age-related osteoporosis without current pathological fracture Category: Medical Qualifiers: Osteoporosis type: age-related Presence of current pathological fracture: with current pathological fracture Encounter type: subsequent encounter Fracture healing: with routine healing Qualified Code(s): M80.00XD - Age-related osteoporosis with current pathological fracture, unspecified site, subsequent encounter for fracture with routine healing Plan: #Osteoporosis Patient is a 74-year-old female with severe osteoporosis highest T-score -3.6 of the AP spine and history of fragility fracture of the right humerus. Given the severity of her osteoporosis ideally she should be on anabolic medications for the 1st 18 months prior to switching to antiresorptives however due to insurance issues we will have to move forward with antiresorptives. Patient has a history of GERD and we will likely not tolerate alendronate so we will do yearly IV Reclast Plan - Vitamin D 1999U - IV Reclast 5mg yearly - Keep vit D > 35 (3) retirement methotrexate user: Code(s): Z79.631 - retirement (current) use of antimetabolite agent Category: Medical Plan: #Long-term Current Use of Methotrexate Discussed with patient the benefits and risks of methotrexate for managing their rheumatic condition Benefits include reduced pain, reduced mortality, maintenance of remission and reduction of flares Risks include oral ulcers, photosensitivity, hepatotoxicity, hematologic toxicity, pneumonitis, flu-like symptoms (especially day after administration), nodulosis, lymphomas ? Limit alcohol and avoid Bactrim ? 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 Plan: #Long-term Use of Bisphosphonates Risks and benefits of bisphosphonates in the management of osteoporosis Benefits include improved bone density, decreased fracture risk Risks include atypical femoral fractures, GI upset, esophageal strictures Contraindicated in patients with a creatinine clearance < 30 to 35 ml/min Keep vitamin-D at least 35 ng/mL Plan I spent 35 minutes reviewing the record and labs, taking a history, examining the patient, discussing the treatment plan, ordering diagnostic work up and documenting in the medical record Orders: Referrals Infusion Center Notification M80.00XD - Age-related osteoporosis with current pathological fracture, unspecified site, subsequent encounter for fracture with routine healing Medications: Refilled folic acid 0.8 mg PO DAILY 90 tabs 1RF M05.79 - Rheumatoid arthritis with rheumatoid factor of multiple sites without organ or systems involvement methotrexate sodium 15 mg (6 x 2.5 mg) PO QWEEK 78 tabs 1RF 90 days M06.9 - Rheumatoid arthritis, unspecified Discontinued abaloparatide (Tymlos) inject into abdomen; do not inject within 2 inches of belly button/navel; rotate sites Discontinued Reason: Doctor's Order 80 mcg (0.04 mL) subcut DAILY 1.56 mL 6RF M80.00XD - Age-related osteoporosis with current pathological fracture, unspecified site, subsequent encounter for fracture with routine healing Coding Level of Care Code Est Pt Level 4 (18446) Complex EM visit Add On G2211 Diagnoses Rheumatoid arthritis involving multiple sites with positive rheumatoid factor M05.79 Rheumatoid arthritis location: multiple sites Rheumatoid factor presence: with rheumatoid factor Age-related osteoporosis with current pathological fracture with routine healing, subsequent encounter M80.00XD Osteoporosis type: age-related Presence of current pathological fracture: with current pathological fracture Encounter type: subsequent encounter Fracture healing: with routine healing retirement methotrexate user Z79.631 Encounter for ongoing osteoporosis therapy, bisphosphonates M81.0; Z79.83
[2025-04-28 10:50] VITALS: BP 130/80; PULSE 88; O2SAT 97; BMI 21.3
--- OUTSIDE RECORDS SUMMARY | 2025-04-28 12:50 | XMS_ITS | Clinical Summary ---
Author Organization [address] [facility] Address [address] [place] [address] Phone Care Team Providers Care Senior Backup Administrator Name Role Phone Corina Mercedes MD Primary [...] mouth every 6 hours as needed. Active guaiFENesin (MUCINEX) 600 mg 12 hr tablet Take 2 tablets (1,200 mg total) by mouth 2 (two) times a day. 10/02/2022 Active dextromethorpha n 15 mg/5 mL syrup Take by mouth 2 (two) times a day if needed for cough. Delsum Liquid Active pantoprazole (PROTONIX) 40 mg EC tablet TAKE 1 TABLET BY MOUTH DAILY 90 tablet 1 12/03/2024 Active cholecalciferol (Vitamin D3) 50 mcg (2,000 unit) tablet Take 0.5 tablets (1,000 Units total) by mouth 1 (one) time each day. 04/10/2023 Active atorvastatin (LIPITOR) 80 mg tablet TAKE 1 TABLET BY MOUTH DAILY 90 tablet 01/21/2025 Active lisinopriL (PRINIVIL,ZESTR IL) 10 mg tablet Take 1 tablet (10 mg total) by mouth 1 (one) time each day. 30 each 02/19/2025 Active methIMAzole (TAPAZOLE) 5 mg tablet 7.5 mg a day , and Monday only a full tab 03/14/2025 Active Active Problems Problem Noted Date Diagnosed Date Gastroesophageal reflux disease 04/16/2025 Assessment & Plan (04/16/2025 3:04 PM EDT): Primary hypertension 02/19/2025 Assessment & Plan (02/19/2025 11:57 AM EDT): BP slightly higher today. Will increase lisinopril to 10 mg daily. The refill can be done by her primary care physician's office. Hyperlipidemia 03/26/2024 Assessment & Plan (04/16/2025 3:04 PM EDT): Orders: Lipid panel with reflex to direct LDL; Future Subclinical hyperthyroidism 09/26/2023 Assessment & Plan (04/16/2025 3:04 PM EDT): Type 2 myocardial infarction (CMS/HCC V24, CMS/H CC V28) 12/05/2022 Overview (07/22/2024): Last Assessment & Plan: This patient did appear to have a non-STEMI. She had normal coronary arteries. She did have wall motion abnormalities. Its not clear if this could have been a form of a stress-induced cardiomyopathy. She is scheduled for an echocardiogram to see what this demonstrates. Assessment & Plan (04/16/2025 3:04 PM EDT): Orders: CBC and differential; Future Assessment & Plan (02/19/2025 11:57 AM EDT): From demand ischemia caused by respiratory distress. Her left ventricular systolic function was normal and mild wall motion abnormality has fully recovered. She had no coronary artery disease by cardiac catheterization. Need to continue working on smoking cessation and management for COPD. Continue primary prevention. No routine follow-up to my office is needed. She will contact us for concerns and questions. Orders: ECG 12 lead Acute and chronic respirator y failure with hypoxia (CMS/HCC V24, CMS/HCC V28) 10/27/2022 Rheumatic arteritis 10/27/2022 Abnormal TSH 12/06/2021 Lung nodule 12/06/2021 Osteoporosis 12/06/2021 Assessment & Plan (04/16/2025 3:04 PM EDT): Abnormal CT scan, lung 05/06/2016 Overview (07/22/2024): Nodules - no change on F/U CT chest. 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 Posterior l. Parietal ? Microvacular ischemic change. +sinusitis Seropositive rheumatoid arth ritis ([facility] V24, [facility] V28) 02/28/2012 Overview (07/22/2024): Onset ~ 2009, mostly hands. RF, CCP Ab, CACHORRO all positive. Negative anti DNA, anti Sm Ab. methotrexate started Aug 2012 - stopped 08/04 when she developed seizure, blood in CSF, leptomeningeal inflammation on MRI scan Hydroxychloroquine started 2016 - changed to methotrexate (restarted) 06/06 Last Assessment & Plan: Lab at end of May and end of July Assessment & Plan (04/16/2025 3:04 PM EDT): Overweight 08/28/2007 Tobacco use disorder 08/28/2007 Overview (07/22/2024): Tried Chantix - bad dreams. Nicotine patches - could not tolerate Last Assessment & Plan: She continues to smoke cigarettes I told her she needs to stop smoking as this could lead to lung disease, which she has, lung cancer strokes peripheral arterial disease. Assessment & Plan (04/16/2025 3:04 PM EDT): Resolved Problems Problem Noted Date Diagnosed Date Resolved Date Elevated troponin I level 10/27/2022 Coronary artery disease 09/28/2022 07/0 09/2024 Encounters Date Type Department Care Team Description 04/16/2025 11:15 AM EDT Office Visit Adult Medicine [place] [address] [place] [address] Glenys Saunders PA Medicare annual wellness visit, subsequent (Primary Dx); Hyperlipidemia, unspecified hyperlipidemia type; Type 2 myocardial infarction ([facility] V24, [facility] V28); Hypertension, unspecified type; Reactive depression; Coronary artery disease, unspecified vessel or lesion type, unspecified whether angina present, unspecified whether lumbee or transplanted heart; Subclinical hyperthyroidism; Osteoporosis, unspecified osteoporosis type, unspecified pathological fracture presence; Seropositive rheumatoid arthritis ([facility] V24, [facility] V28); Tobacco use disorder; Thyroid nodule; Pulmonary emphysema, unspecified emphysema type ([facility] V24, [facility] V28); Gastroesophageal reflux disease, unspecified whether esophagitis present; Encounter for immunization 02/19/2025 8:20 AM EDT Office Visit [facility] [address] [facility] [address] [place] [address] Kristel Gardner MD Type 2 myocardial infarction ([facility] V24, [facility] V28) (Primary Dx); Primary hypertension from Last 3 Months Immunizations Name Administration Dates Next Due Influenza Quadravalent, 0.5m l (Fluzone High-dose) 65yo and older 05/06/2023,06/03/2022,04/25/2021 Influenza trivalent, 0.5mL ( Fluzone High-dose) 65yo and older 06/14/2019,05/04/2018,06/09/2017 Influenza trivalent, with pr eservative (Fluzone; Afluria) 6mo and older 07/01/2016,07/07/2015,07/15/2014,08/11 Influenza, Unspecified 08/26/2023,05/21/2020 Pneumococcal conjugate 13 va lent (Prevnar 13, PCV13) 2mo and older 07/01/2016 Pneumococcal conjugate 20 va lent (Prevnar 20, PCV 20) 2mo and older 04/16/2025 Pneumococcal polysaccharide 23 valent (Pneumovax 23) 2yo [...] dyspnea COPD (chronic obstructive pu lmonary disease) ([facility] V24, [facility] V28) 10/09/2015 DX:COPD (chronic o bstructive pulmonary disease) ([facility]) Family History Medical History Relation Name Comments Heart attack Brother Diabetes Daughter Other: MVA Father Hyperlipidemia Mother Arthritis Sister Relation Name Status Comments Brother Daughter Alive DM I Father Pedestrian MVA Maternal Grandfather Maternal Grandmother UK Mother Heart problems; cholesterol related Paternal Grandfather Paternal Grandmother UK Sister Alive Son Alive healthy Social History Tobacco Use Types Packs/Day Years Used Date Smoking Tobacco: Every Day Cigarettes Smokeless Tobacco: Never Tobacco Cessation:Ready to Q uit: Not Asked; Counseling Given: Not Answered Alcohol Use Standard Drinks/Week Comments Not Currently 0 (1 standard drink = 0.6 oz pur e alcohol) Housing Instability Answer Date Recorde d Are you worried that in the next 2 months you may not have stable housing? No 04/16/2025 Food Access & Nutrition Answer Date Rec orded Do you have access to a vari ety of food including fruits and vegetables? Yes 04/16/2025 Access to Healthcare Answer Date Record ed Within the last 3 months, ho amena many times did you visit the emergency department for your medical care? 0 04/16/2025 Health Literacy Answer Date Recorded How often do you need to hav e someone help you when you read instructions, pamphlets, or other written material from your doctor or pharmacy? Never 04/16/2025 Caregiver: How often do you need to have someone help you when you read instructions, pamphlets, or other written material from your doctor or pharmacy? Not on file 04/16/2025 Financial Risk Answer Date Recorded How hard is it for you to pa y for the very basics like food, housing, medical care, and air conditioning / heating? Not very hard 04/16/2025 Transportation Answer Date Recorded Has the lack of transportati on kept you from meetings, work, or from getting things needed for daily living? No Has the lack of transportati on kept you from medical appointments or from getting medications? No 04/16/2025 Social Isolation Answer Date Recorded How often do you feel lonely or isolated from th ose around you? Never 04/16/2025 Food Risk Answer Date Recorded Within the past 12 months we worried whether our food would run out before we got money to buy more. Never true 04/16/2025 Within the past 12 months th e food we bought just didn't last and we didn't have money to get more. Never true 04/16/2025 Education Answer Date Recorded Do you think completing more education or training, like finishing a GED, going to college, or learning a trade, would be helpful for you? No 04/16/2025 Employment and Income Answer Date Recor ded During the last four weeks, have you been actively looking for work? No 04/16/2025 Living Situation Answer Date Recorded What is your living situation? 0 04/16/2025 Comments No Sex and Gender Information Value Date Recorded Sex Assigned at Not on file Legal Sex Female 5:12 PM EST Gender Identity Not on file Sexual Orientation Not on file Obstetrics History Last Filed Vital Signs Vital Sign Reading Time Taken Comments Blood Pressure 120/70 04/16/2025 11:21 AM EDT Pulse 95 04/16/2025 11:21 AM EDT Temperature 36.1 C (96.9 F) 01/03/2025 2:22 PM EDT Respiratory Rate 18 04/16/2025 11:21 AM EDT Oxygen Saturation 94% 02/19/2025 8:13 AM EDT Inhaled Oxygen Concentration - - Weight 55.3 kg (122 lb) 04/16/2025 11:21 AM EDT Height 162.6 cm (5' 4 ) 04/16/2025 11:21 AM EDT Body Mass Index 20.94 04/16/2025 11:21 AM EDT Plan of Treatment Upcoming Encounters Date Type Department Care Team (Late st Contact Info) Description 05/09/2025 9:00 AM EDT Appointment Radiology Department - [facility] [address] [place], [place] [phone] 05/16/2025 1:00 PM EDT Office Visit Adult Medicine - [place] [address] [place] [address] Glenys Saunders PA [address] [place], [place] 01/02/2026 2:00 PM EDT Office Visit Endocrinology - [facility] [address] [place], [place] [phone] Nadya Rico PA [address] [place] [address] Health Maintenance Due Date Last Done Comments Osteoporosis Screening (Bone Density Screening) 07/20/2022 COVID-19 Vaccine (8 - Pfizer risk season) 2025 07/30/2024, 08/26/2023, 07/02/2022, Additional history exists Influenza Vaccine (#1) 2025 , 08/26/2023, 05/06/2023, Additional history exists Hypertension/CHF/CAD Annual BMP Blood Test 10/17/2025 10/17/2024, 03/26/2024, 03/26/2024, Additional history exists Falls Risk Assessment 04/16/2026 04/16/2025, 024 Medicare Annual Wellness Visit 04/16/2026 04/16/2025 Social Influencers of Health Screening 04/16/2026 04/16/2025 Colorectal Cancer Screening: FIT-DNA (Cologuard) 04/14/2027 04/14/2024 Cholesterol Screening (Lipid Panel) 03/26/2029 03/26/2024, 03/26/2024 DTaP,Tdap,and Td Vaccines (4 - Td or Tdap) 10/17/2034 10/17/2024, 07/15/2014, 08/28/2007 Hepatitis C Screening Completed 09/05/2012 Zoster Vaccines Completed 04/09/2021, 01/30/2021 RSV Immunization Adult Patients Completed 05/06/2023 Depression Screening Completed 04/16/2025, 11/21/19 Pneumococcal Vaccine: 50+ Years Completed 04/16/2025, 07/01/2016, 07/15/2014 HIB Vaccines Aged Out No longer eligi [...] age to complete this topic Meningococcal B Vaccine Aged Out No l onger eligible based on patient's age to complete this topic RSV Immunization Patients Under 20 months Aged Out No longer eligible based on patient's age to complete this topic Varicella Vaccines Aged Out No longer eligible based on patient's age to complete this topic Procedures Procedure Name Priority Date/Time Associated Diagnosis Comments TRIIODOTHYRONINE FREE Routine 03/14/2025 9:37 AM EDT Thyroid nodule FREE THYROXINE WITH REFLEX TO FREE TRIIODOTHYRONINE Routine 03/14/2025 9:37 AM EDT Thyroid nodule THYROID STIMULATING HORMONE WITH REFLEX TO FREE T4 AND FREE T3 Routine 03/14/2025 9:37 AM EDT Thyroid nodule ECG 12-LEAD Routine 02/19/2025 8:19 AM EDT Type 2 myocardial infarction (CMS/HCC V24, CMS/HCC V28) COMPREHENSIVE METABOLIC PANEL Routine 10/17/2024 12:09 PM EST Coronary artery disease, unspecified vessel or lesion type, unspecified whether angina present, unspecified whether lumbee or transplanted heart LIPID PANEL Routine 03/26/2024 DEPRESSION SCREENING Routine 11/21/2023 FALLS RISK ASSESSMENT Routine 11/21/2023 HEPATITIS C SCREENING Routine 09/05/2012 from Last 3 Months or Most Recently Relevant to Health Maintenance Results * (ABNORMAL) Thyroid stimulating hormone with reflex to free t4 and free t3 (03/14/2025 9:37 AM EDT) TSH 4.28(H) 0.40 - 4.00 mcIU/mL LAB CHEMISTRY METHOD 03/14/2025 12:33 PM EDT [facility] Blood Venous blood specimen / Unknown Venipuncture / Unknown 03/14/2025 9:37 AM EDT 03/14/2025 9:37 AM EDT Nadya GERMAIN LAB BLOOD ORDERABLES Final Result Performing Organization Address City/[facility]/ZIP Co de Phone Number [facility] [address] [place] [address], [place] [phone] * Free thyroxine with reflex to free triiodothyronine (03/14/2025 9:37 AM EDT) Free T4 1.37 0.70 - 1.80 ng/dL LAB CHEMISTRY METHOD 03/14/2025 1:20 PM EDT [facility] Blood Venous blood specimen / Unknown Venipuncture / Unknown 03/14/2025 9:37 AM EDT 03/14/2025 9:37 AM EDT Nadya GERMAIN LAB BLOOD ORDERABLES Final Result [facility] [address] [place] [address], [place] [phone] * Triiodothyronine free (03/14/2025 9:37 AM EDT) T3, Free 336 230 - 420 pcg/dL LAB CHEMISTRY METHOD 03/14/2025 2:04 PM EDT [facility] Blood Venous blood specimen / Unknown Venipuncture / Unknown 03/14/2025 9:37 AM EDT 03/14/2025 9:37 AM EDT Nadya GERMAIN LAB BLOOD ORDERABLES Final Result Performing Organization Address [facility] de Phone Number [facility] [address] [place] [address], * ECG 12 lead (02/19/2025 8:19 AM EDT) Ventricular Rate ECG 70 BPM GEMUSE Atrial Rate 70 BPM GEMUSE P-R Interval 168 ms GEMUSE QRS Duration 90 ms GEMUSE Q-T Interval 356 ms GEMUSE QTc 384 ms GEMUSE P Wave [place] 81 degrees GEMUSE R [place] 92 degrees GEMUSE T [place] 75 degrees GEMUSE ECG Interpretation Normal sinus rhythm Rightward axis Borderline ECG When compared with ECG of 22-SEP-2022 09:24, Premature ventricular complexes are no longer Present T wave inversion no longer evident in Inferior leads T wave inversion no longer evident in Anterolateral leads QT has shortened Confirmed by Sania GARDNER, KRISTEL ([id number]) on 02/19/2025 9:18:39 AM GEMUSE 02/19/2025 8:19 AM EDT 02/19/2025 9:18 AM EDT Kristel Gardner MD ECG ORDERABLES Final Result Performing Organization Address [facility] Co de Phone Number GEMUSE * (ABNORMAL) Comprehensive metabolic panel (10/17/2024 12:09 PM EST) [facility] Sodium 141 133 - 145 mmol/L LAB CHEMISTRY METHOD 10/17/2024 4:37 PM EST [facility] Potassium 4.6 3.5 - 5.5 mmol/L LAB CHEMISTRY METHOD 10/17/2024 4:37 PM EST [facility] Chloride 104 96 - 110 mmol/L LAB CHEMISTRY METHOD 10/17/2024 4:37 PM [facility] CO2 29 21 - 32 [...] [facility] Comment:Calculation based on the Chronic Kidney Disease Epidemiology Collaboration (CKD-EPI) equation refit without adjustment for race. BUN/Creatinine Ratio 17.1 LAB [...] g/dL LAB CHEMISTRY METHOD 10/17/2024 4:37 PM EST [facility] ([facility] Total Bilirubin 0.6 0.0 - 1.4 mg/dL LAB CHEMISTRY METHOD 10/17/2024 4:37 PM EST [facility] ([facility] Blood Venous blood specimen / Unknown Venipuncture / Unknown 10/17/2024 12:09 PM EST 10/17/2024 12:09 PM EST Glenys GERMAIN LAB BLOOD ORDERABLES Final Result [facility] ([facility]) [facility] [address] [place] [address], * Lipid panel (03/26/2024) [facility] LDL/HDL Ratio 2 0 - 4 Triglycerides 59 0 - 150 mg/dL Cholesterol 133 0 - 200 mg/dL HDL 62 >=40 mg/dL LDL Cholesterol 60 0 - 100 mg/dL Blood Venous blood specimen / Unknown Result [facility] Historical Provider LAB BLOOD ORDERABLES Demetria l Result * Falls Risk Assessment (11/21/2023) [facility] Falls Risk Assessment abstracted Result [facility] Provider HEALTH MAINTENANCE Final Result * Depression Screening (11/21/2023) [facility] Depression Screening abstracted Result [facility] Historical Provider HEALTH MAINTENANCE Final Result * Hepatitis C Screening (09/05/2012) [facility] Hepatitis C Screening abstracted Result [facility] Historical Provider HEALTH MAINTENANCE Final Result from Last 3 Months or Most Recently Relevant to Health Maintenance Insurance MEDICARE [facility] Advance Directives Documents on File Type Date Recorded 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 Do not modify or discontinue any currently active code status orders. Care Teams Senior Backup Administrator Relationship Specialty Start Date End Date Corina Mercedes MD [address] [place] [phone] PCP - General Internal Medicine 01/05/21
--- OUTSIDE RECORDS SUMMARY | 2025-04-28 12:50 | XMS_ITS ---
Author Name [facility] Organization Unknown Care Team Organization Name Specialty Phone Email Start Date End Da jessica [facility] 04/09/[address] [facility] HOLLY PATEL Primary Care 01/27/2023 04/08/2024
== END 2025-04-28 11:25 | disposition home or self-care (01) ==
LOC: HO.RHE 10:38
PROVIDERS: PCP Internal Medicine; Visit Provider Student in an Organized Health Care Education/Training Program
DX: M05.79 Rheumatoid arthritis with rheumatoid factor of multiple sites without organ or systems involvement (principal); M80.00XD Age-related osteoporosis with current pathological fracture, unspecified site, subsequent encounter for fracture with routine healing; Z79.631 Long term (current) use of antimetabolite agent; Z79.83 Long term (current) use of bisphosphonates
CPT/HCPCS: 99214

== ENCOUNTER 2025-04-28 10:38 | Outpatient (REF) | payer BC, SELFPAY ==
[2025-04-28 14:06] LABS: MANUAL DIFF FLAG NO
[2025-04-28 14:13] LABS: Hematocrit 42.8 % (37.0-47.0); Hemoglobin 14.2 g/dl (12.0-16.0); Imm Gran Abs Auto 0.03 X10*3/uL (0.00-0.03); Imm Gran Pct Auto 0.3 % (0.0-0.4); Lymphocytes Absolute Auto 2.0 X10*3/uL (1.2-4.9); Mean Corpuscular HGB Conc 33.2 g/dl (31.0-35.0); Mean Corpuscular Hemoglobin 32.4 pg (27.0-33.0); Mean Corpuscular Volume 97.7 fL (80.0-98.0); NRBC Abs Auto 0.000 X10*3/uL (0.0-0.012); NRBC Pct Auto 0.0 /100WBC (0.0-0.2); Platelet Count 307 X10*3/uL (160-400); Red Blood Count 4.38 X10*6/uL (4.20-5.50); White Blood Count 9.1 X10*3/uL (4.8-10.8)
[2025-04-28 14:54] LABS: Alanine Aminotransferase 23 U/L (0-31); Albumin Level 4.7 g/dL (3.5-5.0); Alkaline Phosphatase 136 U/L (39-117); Anion Gap 14 (12-20); Aspartate Amino Transferase 23 U/L (5-31); Blood Urea Nitrogen 15 mg/dL (9-16); Calcium 9.5 mg/dL (8.4-10.2); Carbon Dioxide 29 mmol/L (22-29); Chloride 105 mmol/L (96-108); Estimated Glomerular Filt Rate > 60; Potassium 4.7 mmol/L (3.3-5.1); Sodium 143 mmol/L (135-145); Total Protein 7.3 g/dL (6.5-8.0)
[2025-04-29 04:14] LABS: HBS Num1 0.56 mIU/mL (0-7.99); HBc Num1 0.08 S/CO (0.00-0.79); HBsAGNum1 0.45 S/CO (0.00-0.99); Hepatitis A Antibody IgM 0.18 Index (0-0.79); Hepatitis B Surface Antigen Negative (Negative); ~HepC Num1 0.10 S/CO (0.00-0.79); ~Hepatitis A Antibody IgM Nonreactive (Nonreactive); ~Hepatitis B Surface Antibody NONREACTIVE (Nonreactive); ~Hepatitis C Antibody Nonreactive (Nonreactive)
[2025-05-01 09:04] LABS: TS Negative Control Passed; TS Panel A 0; TS Panel B 0; TS Positive Control Passed; TSpotTB Negative (Negative)
== END 2025-04-28 10:39 | disposition home or self-care (01) ==
LOC: HO.HKASLDS 10:38
PROVIDERS: PCP Internal Medicine; Visit Provider Student in an Organized Health Care Education/Training Program
DX: M05.79 Rheumatoid arthritis with rheumatoid factor of multiple sites without organ or systems involvement (principal); M81.0 Age-related osteoporosis without current pathological fracture; E55.9 Vitamin D deficiency, unspecified; Z79.631 Long term (current) use of antimetabolite agent; Z79.83 Long term (current) use of bisphosphonates
CPT/HCPCS: 36415; 80053; 82306; 85025; 85652; 86140; 86481; 86704; 86706; 86709; 86803; 87340